=== PATIENT | female | born 1980 | race Caucasian/White ===

== ENCOUNTER 2021-03-27 11:16 | Inpatient (IN) | payer MEDICAID, SELFPAY ==
[2021-03-27] VITALS (7 sets, daily range): BP systolic 110–134; BP diastolic 75–96; PULSE 71–93; RESP 18–20; TEMP 36.4–37.1; O2SAT 95–99
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
--- NOTE | 2021-03-27 11:57 | ECG_ITS ---
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 Measurements Intervals [place] Rate: 69 P: 58 SD: 159 QRS: 11 QRSD: 91 T: 46 QT: 389 QTc: 418 Interpretive Statements SINUS RHYTHM WITH SINUS ARRHYTHMIA INDETERMINATE AXIS LOW QRS VOLTAGE IN PRECORDIAL LEADS [QRS DEFLECTION < 1.0 mV IN CHEST LEADS] INCOMPLETE RIGHT BUNDLE BRANCH BLOCK [90+ ms QRS DURATION, TERMINAL R IN V1/V2, 40+ ms S IN I/aVL/V4/V5/V6] No previous ECG available for comparison Electronically Signed On 03-27-2021 19:38:14 CDT by Eagle Salinas M.D. [email or web address]
[2021-03-27] MEDS: haloperidol inj 5 mg/mL INJ 1 mL IM (12:09)
[2021-03-27] MEDS: LORazepam 2 mg/mL INJ 1 mL IM (12:09)
[2021-03-27 14:01] LABS: Basophils % 0.3 %; Eosinophils # 0.1 10^3/uL (0.0-0.8); Eosinophils % 0.7 %; Hematocrit 42.3 % (37.0-47.0); Hemoglobin 13.3 g/dL (11.5-15.3); Lymphocytes # 2.5 10^3/uL (0.8-4.8); Lymphocytes % 33.8 %; Mean Corpuscular HGB Conc 31.4 g/dL (30.0-36.0); Mean Corpuscular Hemoglobin 28.2 pg (28.0-34.0); Mean Corpuscular Volume 89.8 fl (81-99); Mean Platelet Volume 9.8 fL (7.4-10.4); Monocytes # 0.7 10^3/uL (0.2-0.9); Monocytes % 9.5 %; Neutrophils # 4.12 10^3/uL (1.8-7.7); Neutrophils % 55.6 %; Nucleated Red Blood Cells % 0 %; Platelet Count 415 10^3/cmm (130-400); Red Blood Count 4.71 10^6/uL (4.1-5.3); Red Cell Distribution Width 14.8 % (12.1-15.1); White Blood Count 7.4 10^3/uL (4.0-10.0)
--- NOTE | 2021-03-27 14:01 | PC.NURSE ---
PT DIFFICULT TO AROUSE WITH VERBAL STIMULATION AND PHYSICAL TOUCH, VERSED NOT GIVEN
[2021-03-27 14:48] LABS: Alanine Aminotransferase 36 U/L (0-33); Albumin Level 3.7 g/dL (3.5-5.2); Alkaline Phosphatase 70 IU/L (35-105); Anion Gap 11.6 (5-19); Aspartate Amino Transferase 41 U/L (0-32); Blood Urea Nitrogen 10 mg/dL (6-20); Calcium 9.5 mg/dL (8.5-10.5); Carbon Dioxide 29 mmol/L (22-29); Chloride 103 mmol/L (98-107); Globulin 3.6 g/dL (1.3-4.6); Glomerular Filtration Rate 245.2 mL/min (90-130); Glucose 82 mg/dL (65-115); Osmolality Calculated 288 mOsm/kg (285-295); Potassium 3.6 mmol/L (3.5-5.1); Sodium 140 mmol/L (136-145); Thyroid Stimulating Hormone 1.54 uIU/mL (0.27-4.20); Total Bilirubin 0.4 mg/dL (0.15-1.2); Total Protein 7.3 g/dL (6.6-8.7)
[2021-03-27 14:53] LABS: Acetaminophen < 5.0 ug/mL (10-30); Alcohol Level < 10 mg/dL (0-10); Salicylate < 0.3 mg/dL (3-10)
[2021-03-27] MEDS: fentaNYL 50 mcg/mL INJ 2mL 25 MCG IVP (15:05)
[2021-03-27 15:45] LABS: HCG, Serum Qual Negative (Negative)
[2021-03-27 17:27] LABS: Glucose Urine UA Norm (Normal); Ketones Urine Negative (Negative); Protein Urine 1+ (Negative); Urine Appearance SL Hazy (CLEAR); Urine Color Yellow (Yellow); pH Urine 5 (5-7)
[2021-03-27 17:28] LABS: Add Urine Microscopic? YES; Bilirubin Urine Neg (Negative); Blood Urine 3+ (Negative); Leukocyte Esterase Urine 2+ (Negative); Nitrate Urine Positive (Negative); Urobilinogen Urine Neg (Negative)
[2021-03-27 17:40] LABS: Add Urine Culture? Yes; Bacteria Urine 4+ /hpf; Squamous Epithelial Cell Urine 0-4 /hpf (0-5)
[2021-03-28 06:00] VITALS: BP 110/75; PULSE 87; RESP 18; TEMP 37.1; O2SAT 99
[2021-03-28 14:00] VITALS: BP 96/63; PULSE 97; RESP 18; TEMP 36.7; O2SAT 97
[2021-03-28] MEDS: sulfamethoxazole-trimeth DS 160-800 mg Tablet 1 TAB PO ×3 (14:33→19:48)
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
[2021-03-28] MEDS: acetaminophen 325 mg Tablet 650 MG PO (19:47)
[2021-03-28 22:00] VITALS: BP 90/62; PULSE 82; RESP 20; TEMP 36.6; O2SAT 98
[2021-03-29 06:00] VITALS: BP 112/77; PULSE 96; RESP 18; TEMP 38; O2SAT 98
[2021-03-29] MEDS: acetaminophen 325 mg Tablet 650 MG PO ×3 (06:06→20:03)
[2021-03-29 09:44] LABS: Amphetamines Screen Urine Negative (Negative); Barbiturates Screen Urine Negative (Negative); Benzodiazepines Screen Urine Positive (Negative); Cocaine Screen Urine Negative (Negative); Opiate Screen Urine Negative (Negative); PCP Screen Urine Negative (Negative); THC Screen Urine Positive (Negative)
[2021-03-29 14:00] VITALS: BP 98/64; PULSE 89; RESP 16; TEMP 37.4; O2SAT 97
--- NOTE | 2021-03-29 17:21 | P.PN_ITS ---
Subjective NPU Subjective: Interval history: I discussed the patient's progress with the treatment team. They have talked with the patient's mother who had taken out a 96-hour hold to keep her daughter in the hospital to get the treatment she needs. Her mother's been concerned that she has been staying in the nettles. The patient says that she has been in an irritable and depressed mood, rating her depression at 8/10 in severity. She says she is tired, though she slept really well. She denies suicidal and homicidal ideation. She denies auditory and visual hallucinations. She would like to start on an antidepressant, and said that Wellbutrin has been helpful in the past. She denies histories of seizures and bulimia, and did not have any issues on the Wellbutrin. I spoke with the patient about her substance use. She says she is on the waiting list for [facility]. She is hoping that she can go to their facility directly from here. She says that her mother is adamant about her not staying with her. But she has some things she needs to picker / packer from her mother's house. The patient says she has felt like she has a fever and has felt achy. Her temp was 99.4 a little while ago. I spoke with the hospitalist on-call and he will review her labs. Urine culture was positive for E. coli and was sensitive to Bactrim, so that should provide adequate coverage. Mental Status Exam MSE Comments: I met with the patient on the bench by the nurses station, and she was dressed in hospital scrubs and appropriately groomed. She was calm, cooperative, interactive, and made good eye contact. No psychomotor agitation or retardation. Speech is at a regular rate and rhythm, normal volume, good articulation, not pressured. Alert, oriented to person and situation. Attention and concentration were intact. Memory is intact. Mood is depressed and anxious. Affect is pleasant. Thought process is logical and goal-directed. Thought content: Denies auditory and visual hallucinations. No delusions or paranoia are noted. No current suicidal ideation, and no homicidal ideation. Insight and judgment appear to be fair. Impulse control is fair as well. Vitals/I&O/Wt Last Vital Signs Temp 99.4 F 03/29/21 14:00 Pulse 89 09/03/21 14:00 Resp 16 03/29/21 14:00 BP 98/64 03/29/21 14:00 Pulse Ox 97 03/29/21 14:00 Weight last 48 hrs Weight 44.452 kg Data NPU : 03/27/21 13:54 03/27/21 13:54 Micro: Microbiology 03/27/21 16:48 Urine Culture - Final Urine,Clean Catch Escherichia coli Microbiology 03/27/21 16:48 Urine,Clean Catch Urine Culture - Final Escherichia coli A&P Assessment and plan (1) Bipolar 1 disorder, mixed: Status: Acute (2) Alcohol use disorder, mild, abuse: Status: Acute (3) Methamphetamine use disorder, mild, abuse: Status: Acute (4) Acute psychosis: Status: Acute Additional A&P Information Shavon Ojeda is a 40 year old female with 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 RECOMMENDATION AND PLAN: 1. Add Wellbutrin XL 150 mg daily for depression. She is also on melatonin. Because delusions have been resolving, we will hold off from adding an antipsychotic. 2. Continue every 15 minute checks for safety. 3. Encourage individual, group and milieu therapies. 4. Encourage sober living treatment after discharge at the highest level of care to which he is willing to commit. 5. Give Bactrim DS twice daily for 7 days for UTI. She does have a low-grade temp, but the urine culture shows that the E. coli is sensitive to Bactrim. 6. We will obtain a UDS, since the ED was unable to obtain ONE. It is positive for benzos and marijuana. Involuntary Hold Information 96 Hour Hold: 96 Hour Involuntary Admission: Yes 96 Hour Hold Ending Date: 04/03/21 96 Hour Hold Ending Time: 12:15 Attestations NPU Medical Necessity Statement*: Psychiatric hospitalization is medically necessary to prevent access to lethal means, to reevaluate medication, and to coordinate a safe discharge. Likely length of stay is 3 to 5 days. Coding Level of Care Code Acute Field Representatives Director for [facility] Byrd Diagnoses Bipolar 1 disorder, mixed F31.60 Alcohol use disorder, mild, abuse F10.10 Methamphetamine use disorder, mild, abuse F15.10 Acute psychosis F23
[2021-03-29] MEDS: sulfamethoxazole-trimeth DS 160-800 mg Tablet 1 TAB PO ×2 (17:38→20:03)
[2021-03-29] MEDS: trazodone 50 mg Tablet PO (20:16)
[2021-03-29 22:00] VITALS: BP 97/59; PULSE 67; RESP 18; TEMP 37.4; O2SAT 96
[2021-03-30] MEDS: acetaminophen 325 mg Tablet 650 MG PO ×2 (05:13→14:13)
[2021-03-30 06:00] VITALS: BP 87/64; PULSE 67; RESP 17; TEMP 36.8; O2SAT 98
--- NOTE | 2021-03-30 12:32 | P.PN_ITS ---
Subjective NPU Subjective: Interval history: Patient ask about going home or to [facility]. I explained that we would not be able to find out about [facility] until Thursday. She says her mood is pretty good, and she slept better with the trazodone last night. She says she woke up at 5 AM anxious with her mind racing. She is not sure what happened. She thinks that having a good night sl eep might have been different than when she stays up all night. She denies medication side effects. She says she is feeling better physically, without any feverishness or achiness. She denies auditory and visual hallucinations. No suicidal or homicidal ideation. New We talked about her drug use. She says her brother does not let her do drugs at his house. So she usually goes on the road to find drugs. Sometimes she goes to [place]. When asked what that is like, she says, you think it is going to be a couple of hits of something, then you wake up and you have been in intermediate for 6 months. We talked about the importance of creating a good plan so that that does not happen again. Mental Status Exam MSE Comments: I met with the patient in the day area, and she was dressed in hospital scrubs and appropriately groomed. She was calm, cooperative, interactive, and made good eye contact. No psychomotor agitation or retardation. Speech is at a regular rate and rhythm, normal volume, good articulation, not pressured. Alert, oriented to person and situation. Attention and concentration were intact. Memory is intact. Mood is depressed and anxious. Affect is pleasant. Thought process is logical and goal-directed. Thought content: Denies auditory and visual hallucinations. No delusions or paranoia are noted. No current suicidal ideation, and no homicidal ideation. Insight and judgment appear to be fair. Impulse control is fair as well. Vitals/I&O/Wt Last Vital Signs Temp 98.3 F 03/30/21 06:00 Pulse 67 03/30/21 06:00 Resp 17 03/30/21 06:00 BP 87/64 03/30/21 06:00 Pulse Ox 98 03/30/21 06:00 Data NPU : 03/27/21 13:54 03/27/21 13:54 Micro: Microbiology 03/27/21 16:48 Urine Culture - Final Urine,Clean Catch Escherichia coli Microbiology 03/27/21 16:48 Urine,Clean Catch Urine Culture - Final Escherichia coli A&P Assessment and plan (1) Bipolar 1 disorder, mixed: Status: Acute (2) Alcohol use disorder, mild, abuse: Status: Acute (3) Acute psychosis: Status: Acute (4) Methamphetamine use disorder, mild, abuse: Status: Acute Additional A&P Information Shavon Ojeda is a 40 year old female with 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 RECOMMENDATION AND PLAN: 1. Add Wellbutrin XL 150 mg daily for depression. She is also on melatonin. Because delusions have been resolving, we will hold off from adding an antipsychotic. No side effects on medication so far. 2. Continue every 15 minute checks for safety. 3. Encourage individual, group and milieu therapies. 4. Encourage sober living treatment after discharge at the highest level of care to which he is willing to commit. 5. Give Bactrim DS twice daily for 7 days for UTI. She does have a low-grade temp, but the urine culture shows that the E. coli is sensitive to Bactrim. Symptoms are improving. 6. UDS was positive for benzos and marijuana. Involuntary Hold Information 2 96 Hour Hold: 96 Hour Involuntary Admission: Yes 96 Hour Hold Ending Date: 04/03/21 96 Hour Hold Ending Time: 12:15 Attestations NPU Medical Necessity Statement*: Psychiatric hospitalization is medically nece ssary to prevent access to lethal means, to reevaluate medication, and to coordinate a safe discharge. Likely length of stay is 3 to 5 days. Coding Level of Care Code Acute Supervisor Operations for [facility] Fwd Diagnoses Bipolar 1 disorder, mixed F31.60 Alcohol use disorder, mild, abuse F10.10 Acute psychosis F23 Methamphetamine use disorder, mild, abuse F15.10
[2021-03-30 14:00] VITALS: BP 107/71; PULSE 68; RESP 18; TEMP 36.5; O2SAT 99
[2021-03-30] MEDS: sulfamethoxazole-trimeth DS 160-800 mg Tablet 1 TAB PO (17:20)
[2021-03-30 19:55] VITALS: BP 129/74; PULSE 88; RESP 18; TEMP 36.2; O2SAT 74
[2021-03-30] MEDS: trazodone 50 mg Tablet PO (21:27)
--- NOTE | 2021-03-30 21:30 | PC.NURSE ---
pt requested sleep med, Trazodone 50mg given.
--- NOTE | 2021-03-31 00:15 | PC.NURSE ---
pt noted with increased anxiety, yelling out, coming up to the desk wrapped in her sheet. Additional Trazodone 50mg po and Vistaril 50mg po given
[2021-03-31] MEDS: hyDROXYzine 25 mg Capsule 50 MG PO ×2 (00:32→21:11)
[2021-03-31] MEDS: trazodone 50 mg Tablet PO ×2 (00:32→21:11)
--- NOTE | 2021-03-31 00:33 | PC.NURSE ---
pt noted with increasde anxiety. requesting additional sleep aide. Trazodone 50mg po and Vistaril 50mg po given.
[2021-03-31 06:00] VITALS: BP 129/74; PULSE 88; RESP 18; TEMP 36.8; O2SAT 91; BMI 20.5
[2021-03-31] MEDS: sulfamethoxazole-trimeth DS 160-800 mg Tablet 1 TAB PO ×2 (08:25→18:23)
[2021-03-31] MEDS: haloperidol 5 mg Tablet PO (08:40)
--- NOTE | 2021-03-31 08:42 | PC.NURSE ---
Patient began throwing her blankets into the foyer in Room 170. She was screaming and hitting the jacobson. Administered Haldol 5mg PO for increasing agitation. Nurse to monitor for medication effectiveness.
[2021-03-31 14:00] VITALS: BP 95/63; PULSE 86; RESP 15; TEMP 36.8; O2SAT 97
--- NOTE | 2021-03-31 16:56 | P.PN_ITS ---
Subjective NPU Subjective: Interval history: I met with the patient in her room with the door open. She was quite sleepy, as she had gotten a sedative medication. She was not much able to tell me what had caused her to scream last night. She says today she is mostly feeling tired. Staff said that something set her off yesterday evening, and she seemed terrified. She denies medication side effects today. I talked with her about adding Zyprexa at bedtime on a scheduled basis. She likes this idea. She is taking it and tolerated it well already. Mental Status Exam MSE Comments: I met with the patient in her room, and she was quite sleepy.. She had psychomotor retardation. Speech was slow and quiet. Alert, oriented to person and situation. Attention and concentration were limited. Memory is intact. Mood is depressed and anxious. Affect is more irritable. Thought process is concrete. Thought content: Denies auditory and visual hallucinations. No delusions or paranoia are noted. No current suicidal ideation, and no homicidal ideation. Insight and judgment appear to be limited. Impulse control is limited as well. 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 RECOMMENDATION AND PLAN: 1. Add Zyprexa 5 mg at bedtime for psychosis and mood stabilization 2. Added Wellbutrin XL 150 mg daily for depression. She is also on melatonin. Because delusions have been resolving, we will hold off from adding an antipsychotic. No side effects on medication so far. 3. Continue every 15 minute checks for safety. 4. Encourage individual, group and milieu therapies. 5. Encourage sober living treatment after discharge at the highest level of care to which he is willing to commit. 6. Give Bactrim DS twice daily for 7 days for UTI. She does have a low-grade temp, but the urine culture shows that the E. coli is sensitive to Bactrim. Sy mptoms are improving. 7. UDS was positive for benzos and marijuana. Involuntary Hold Information 96 Hour Hold: 96 Hour Involuntary Admission: Yes 96 Hour Hold Ending Date: 04/03/21 96 Hour Hold Ending Time: 12:15 Attestations NPU Medical Necessity Statement*: Psychiatric hospitalization is medically necessary to prevent access to lethal means, to reevaluate medication, and to coordinate a safe discharge. Likely length of stay is 2 to 4 days. Coding Level of Care Code Acute Order Make Up Clerk for Everardo Byrd Diagnoses Bipolar 1 disorder, mixed F31.60 Alcohol use disorder, mild, abuse F10.10 Methamphetamine use disorder, mild, abuse F15.10 Acute psychosis F23
[2021-03-31] MEDS: OLANZapine 5 mg TABLET PO (21:11)
[2021-03-31 21:25] VITALS: BP 88/54; PULSE 73; RESP 17; TEMP 36.6; O2SAT 95
[2021-04-01 06:00] VITALS: BP 99/61; PULSE 90; RESP 15; TEMP 36.6; O2SAT 95
[2021-04-01] MEDS: sulfamethoxazole-trimeth DS 160-800 mg Tablet 1 TAB PO ×2 (07:42→17:12)
[2021-04-01 13:51] VITALS: BP 94/50; PULSE 68; RESP 16; TEMP 36.9; O2SAT 98
[2021-04-01] MEDS: hyDROXYzine 25 mg Capsule 50 MG PO (14:50)
--- NOTE | 2021-04-01 17:53 | P.PN_ITS ---
Subjective NPU Subjective: Interval history: The patient says she barely remembers talking yesterday. She was groggy from her medications, probably the Zyprexa last evening. She says she is irritable today and does not know why. She says this happens quite a bit. She says her energy is about half the usual level, but she is motivated to do things. She says her future is bright. She denies suicidal and homicidal ideation. She denies auditory and visual hallucinations. She is now planning on staying at her mother's house until she can go to [facility] rehab program. Mental Status Exam MSE Comments: I met with the patient on the bench by the nurses station. She is more alert today. She is calm, cooperative, and makes fairly good eye contact. She had no psychomotor agitation or retardation. Speech at a regular rate and rhythm and normal volume.. Alert, oriented to person and situation. Attention and concentration were improved. Memory is intact. Mood is irritable. Affect is irritable. Thought process is concrete. Thought content: Denies auditory and visual hallucinations. No delusions or paranoia are noted. No current suicidal ideation, and no homicidal ideation. Insight and judgment appear to be improved. Impulse control is improved as well. 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 RECOMMENDATION AND PLAN: 1. Added Zyprexa 5 mg at bedtime for psychosis and mood stabilization 2. Added Wellbutrin XL 150 mg daily for depression. She is also on melatonin. Because delusions have been resolving, we will hold off from adding an antipsychotic. No side effects on medication so far. 3. Continue every 15 minute checks for safety. 4. Encourage individual, group and milieu therapies. 5. Encourage sober living treatment after discharge at the highest level of care to which he is willing to commit. 6. Give Bactrim DS twice daily for 7 days for UTI. She does have a low-grade temp, but the urine culture shows that the E. coli is sensitive to Bactrim. Symptoms are improving. 7. UDS was positive for benzos and marijuana. Involuntary Hold Information 96 Hour Hold: 96 Hour Involuntary Admission: Yes 96 Hour Hold Ending Date: 04/03/21 96 Hour Hold Ending Time: 12:15 Attestations NPU Medical Necessity Statement*: Psychiatric hospitalization is medically necessary to prevent access to lethal means, to reevaluate medication, and to coordinate a safe discharge. Likely length of stay is 1 to 3 days. Coding Level of Care Code Acute Thread Milling Machine Set Up Operator for Everardo Fwd Diagnoses Bipolar 1 disorder, mixed F31.60 Alcohol use disorder, mild, abuse F10.10 Methamphetamine use disorder, mild, abuse F15.10 Acute psychosis F23
[2021-04-01] MEDS: nicotine 2 mg Gum BUCCAL (18:59)
[2021-04-01 20:16] VITALS: BP 103/68; PULSE 73; RESP 14; TEMP 36.6; O2SAT 98
[2021-04-01] MEDS: acetaminophen 325 mg Tablet 650 MG PO (21:59)
[2021-04-01] MEDS: OLANZapine 5 mg TABLET PO (21:59)
[2021-04-01] MEDS: trazodone 50 mg Tablet PO (21:59)
[2021-04-02] MEDS: acetaminophen 325 mg Tablet 650 MG PO (05:48)
[2021-04-02 06:00] VITALS: BP 116/72; PULSE 63; RESP 18; TEMP 36.6; O2SAT 97
[2021-04-02] MEDS: sulfamethoxazole-trimeth DS 160-800 mg Tablet 1 TAB PO (09:13)
[2021-04-02] MEDS: nicotine 2 mg Gum BUCCAL (09:13)
[2021-04-02] MEDS: hyDROXYzine 25 mg Capsule 50 MG PO (09:48)
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
[2021-04-02 13:57] VITALS: BP 116/72; PULSE 63; RESP 18; TEMP 36.6; O2SAT 97
[2021-04-02 14:02] VITALS: BP 116/72; PULSE 63; RESP 18; TEMP 36.6; O2SAT 97
== END 2021-04-02 14:02 | disposition home or self-care (01) | DRG 885 ==
LOC: ER 11:32 → NP 16:22
PROVIDERS: Admitting Provider Psychiatry & Neurology Child & Adolescent Psychiatry; Emergency Provider Emergency Medicine; PCP Family Medicine; Visit Provider Psychiatry & Neurology Child & Adolescent Psychiatry
DX: F23 Brief psychotic disorder (principal); F10.159 Alcohol abuse with alcohol-induced psychotic disorder, unspecified; F10.14 Alcohol abuse with alcohol-induced mood disorder; N39.0 Urinary tract infection, site not specified; F15.159 Other stimulant abuse with stimulant-induced psychotic disorder, unspecified; F15.14 Other stimulant abuse with stimulant-induced mood disorder; F31.60 Bipolar disorder, current episode mixed, unspecified; F32.9 Major depressive disorder, single episode, unspecified; F17.210 Nicotine dependence, cigarettes, uncomplicated; S01.81XA Laceration without foreign body of other part of head, initial encounter; W22.09XA Striking against other stationary object, initial encounter; B96.20 Unspecified Escherichia coli [E. coli] as the cause of diseases classified elsewhere; G71.00 Muscular dystrophy, unspecified; Z91.5 Personal history of self-harm; Z63.8 Other specified problems related to primary support group
CPT/HCPCS: 12013; 80053; 80306; 80307; 81001; 84443; 84703; 85025; 87077; 87086; 87186; 93005; 96372; 96374; 99285; J1630; J2060; J3010

== ENCOUNTER 2021-05-17 14:07 | Outpatient (CLI) | payer MEDICAID, SELFPAY ==
--- NOTE | 2021-05-17 14:16 | XR_ITS ---
WS: [id number] Lumbar spine, 3 views, 05/17/2021 Clinical Data: back and radicular pain Comparison: Lumbar spine, 10/27/2018. Findings: There is a levoscoliosis of the lumbar spine with a dextroscoliosis of the thoracic spine. There are bilateral pedicle screws and connecting rods, unchanged, extending from L4 superiorly into the thorac ic spine. The large calcifications to the right of the lumbar spine are unchanged. The calcifications may be renal and and gallbladder. There is a possible renal calcification to the left of the L2 vert ebral body measuring 0.8 cm.There is osteoarthritic change at the L3-4 level with disc narrowing and a right bony fusion. The SI joints show no changes. No compression fractures are noted. XR/XR lumbar spine 2-3V* [id number] Impression: 1. Extensive thoracolumbar scoliosis reduced with pedicle screws and rods uncha nged. 2. Cholelithiasis and right renal calcifications unchanged. 3. Left renal calcification. 4. 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
== END 2021-05-17 14:08 | disposition home or self-care (01) ==
LOC: RAD 14:11
PROVIDERS: PCP Family Medicine; Visit Provider Family Medicine Adult Medicine
DX: M54.16 Radiculopathy, lumbar region (principal); M41.85 Other forms of scoliosis, thoracolumbar region; N20.0 Calculus of kidney; M47.816 Spondylosis without myelopathy or radiculopathy, lumbar region
CPT/HCPCS: 72100; 81025

== ENCOUNTER 2021-11-01 14:58 | Inpatient (IN) | payer MEDICAID, SELFPAY ==
[2021-11-01 15:11] VITALS: BP 137/96; PULSE 129; RESP 18; TEMP 36.7; O2SAT 98; BMI 25.2
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
--- NOTE | 2021-11-01 16:01 | PC.PHAR ---
pt states she is not taking any rx or otc medications-pt has rx on hold for mobic 7.5mg daily at [facility] from apr 2021 and at [facility] with 4 refills from 05/2021 pt states not taking
[2021-11-01 16:02] VITALS: BP 137/96; PULSE 129; RESP 18; TEMP 36.7; O2SAT 98
[2021-11-01 16:09] LABS: HCG Qualitative Urine. Negative (Negative)
[2021-11-01] MEDS: sodium chloride 0.9% 1,000 ML 999 ML IV (16:24)
[2021-11-01 16:28] LABS: Amphetamines Screen Urine Negative (Negative); Barbiturates Screen Urine Negative (Negative); Benzodiazepines Screen Urine Negative (Negative); Cocaine Screen Urine Negative (Negative); Opiate Screen Urine Negative (Negative); PCP Screen Urine Negative (Negative); THC Screen Urine Positive (Negative)
[2021-11-01 16:49] LABS: Basophils % 0.3 %; Eosinophils # 0.1 10^3/uL (0.0-0.8); Eosinophils % 0.9 %; Hematocrit 42.7 % (37.0-47.0); Hemoglobin 13.6 g/dL (11.5-15.3); Lymphocytes % 27.1 %; Mean Corpuscular HGB Conc 31.9 g/dL (30.0-36.0); Mean Corpuscular Hemoglobin 27.4 pg (28.0-34.0); Mean Corpuscular Volume 85.9 fl (81-99); Mean Platelet Volume 11.2 fL (7.4-10.4); Monocytes # 0.6 10^3/uL (0.2-0.9); Neutrophils # 4.77 10^3/uL (1.8-7.7); Neutrophils % 63.6 %; Nucleated Red Blood Cells % 0 %; Platelet Count 345 10^3/cmm (130-400); Red Blood Count 4.97 10^6/uL (4.1-5.3); White Blood Count 7.5 10^3/uL (4.0-10.0)
[2021-11-01 17:48] LABS: Alanine Aminotransferase 30 U/L (0-33); Albumin Level 3.6 g/dL (3.5-5.2); Alkaline Phosphatase 73 IU/L (35-105); Anion Gap 11.8 (5-19); Aspartate Amino Transferase 35 U/L (0-32); Blood Urea Nitrogen 12 mg/dL (6-20); Carbon Dioxide 25 mmol/L (22-29); Chloride 106 mmol/L (98-107); Globulin 3.6 g/dL (1.3-4.6); Glucose 96 mg/dL (65-115); Osmolality Calculated 288 mOsm/kg (285-295); Potassium 3.8 mmol/L (3.5-5.1); Sodium 139 mmol/L (136-145); Thyroid Stimulating Hormone 1.18 uIU/mL (0.27-4.20); Total Bilirubin 0.3 mg/dL (0.15-1.2); Total Protein 7.2 g/dL (6.6-8.7)
[2021-11-01 17:49] LABS: Acetaminophen < 5.0 ug/mL (10-30); Alcohol Level < 10 mg/dL (0-10); Salicylate < 0.3 mg/dL (3-10)
--- NOTE | 2021-11-01 18:09 | CTR_ITS ---
PROCEDURE INFORMATION: Exam: CT Head Without Contrast Exam date and time: 11/01/2021 6:16 PM Age: 41 years old Clinical indication: Injury or trauma; Fall; Blunt trauma (contusions or hematomas); Additional info: Hit head, amnesia TECHNIQUE: Imaging protocol: Computed tomography of the head without contrast. Radiation optimization: All CT scans at this facility use at least one of these dose optimization techniques: automated exposure control; mA and/or kV adjustment per patient size (includes targeted exams where dose is matched to clinical indication); or iterative reconstruction. COMPARISON: No relevant prior studies available. RADIATION DOSE METRICS: Total DLP (mGy-cm): 686.47 FINDINGS: Brain: Normal. No hemorrhage. Unremarkable white matter. No mass effect. Cerebral ventricles: No ventriculomegaly. Paranasal sinuses: Visualized sinuses are unremarkable. No fluid levels. Mastoid air cells: Visualized mastoid air cells are well aerated. Bones/joints: Unremarkable. No acute fracture. Soft tissues: Unremarkable. CT/CT head wo con* [id number] IMPRESSION: No acute intracranial abnormality.
[2021-11-01] MEDS: haloperidol inj 5 mg/mL INJ 1 mL IM (18:45)
[2021-11-01] MEDS: LORazepam 2 mg/mL INJ 1 mL IM (18:45)
[2021-11-01 20:07] VITALS: BP 115/77; PULSE 81; RESP 18; O2SAT 96
[2021-11-02 05:48] VITALS: BP 101/69; PULSE 70; RESP 15; O2SAT 98
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
[2021-11-02 14:00] VITALS: BP 97/58; PULSE 85; RESP 16; TEMP 36.6; O2SAT 96
[2021-11-02] MEDS: gabapentin 300 mg Capsule PO (17:09)
[2021-11-02 19:41] VITALS: BP 104/74; PULSE 100; RESP 18; TEMP 36.7; O2SAT 96
[2021-11-03] MEDS: acetaminophen 325 mg Tablet 650 MG PO ×3 (05:35→17:23)
[2021-11-03 06:00] VITALS: BP 123/77; PULSE 81; RESP 16; TEMP 36.4; O2SAT 99
[2021-11-03] MEDS: escitalopram 10 mg Tablet PO (08:29)
[2021-11-03] MEDS: gabapentin 300 mg Capsule PO ×2 (08:29→20:54)
--- NOTE | 2021-11-03 08:33 | W.PM.NPUPNS ---
Subjective NPU Subjective: She still does not have a recollection of acting unusual after she left intermediate and went to the alf. She says that she fell back and hit her head and that they were concerned about her. She she said that she does have a history of self-injurious behavior. She does not remember the dose of Neurontin that she was on previously but it did help the pain substantially. She thought that she only took it twice per day. She also does not remember the dose of Lexapro that she took previously. She agreed to gradually increase the Neurontin. Today will be the first dose of 300 mg twice a day. She said it used to make her a little sleepy but she has not noticed that significantly from these doses. Mental Status Exam MSE Comments: This is a 41-year-old appropriate weight female who appears approximately her stated age and is in no acute distress. She was up and walking after breakfast. She was pleasant and cooperative with the evaluation. She is dressed in hospital scrubs. Her hair is very short. psychomotor activity is normal Speech is at a regular rate and rhythm, normal volume, good articulation, not pressured. Alert, oriented X3 Attention and concentration somewhat decreased because of the sedation. Memory is intact Mood is okay. Affect is mildly dysphoric Thought process is logical and goal-directed. Thought content: Denies auditory and visual hallucinations. No delusions or paranoia are noted. No current suicidal ideation, and no homicidal ideation. Fund of knowledge is possibly below average it is difficult to assess Insight and judgment appear to be poor. Impulse control is poor. Cognition: Patient Appearance: Appropriate Level of Consciousness: Awake, Alert and Appropriate Patient Cognition Impaired: No Ability to Follow Directions: Fair Patient Orientation (long list): Person, Place, Time, Name, Month and Year Comprehension Ability: No Impairment Hallucination Type: None Delusion Description: Not Present Thought Process: Appropriate and Logical Affect: Affect Description: Appropriate Behavior: Patient Behavior: Appropriate and Cooperative Speech Pattern: Appropriate and Clear Vitals/I&O/Wt Last Vital Signs Temp 97.5 F L 11/03/21 06:00 Pulse 81 11/03/21 06:00 Resp 16 11/03/21 06:00 BP 123/77 11/03/21 06:00 Pulse Ox 99 11/03/21 06:00 Weight last 48 hrs Weight 46.176 kg Weight 56.699 kg Data NPU : 11/01/21 16:28 11/01/21 17:05 A&P Assessment and plan (1) Acute psychosis: Status: Acute (2) Scoliosis deformity of spine: Status: Acute (3) Methamphetamine abuse: Status: Acute Plan This is a 41-year-old female who has a history of erratic behavior and substance abuse. She comes in now because of bizarre behavior since being released from intermediate 4 days ago. Urinalysis was only positive for marijuana. It seems fortunate that she has done irreparable damage to her brain Bilo for polysubstance abuse. She wants to start on Lexapro and Neurontin. Plan: 1. Start Lexapro 10 mg and Neurontin 300 mg twice daily 2. Continue every 15 minute checks for safety. 3. Encourage individual, group and milieu therapies. 4. Encourage sober living treatment after discharge at the highest level of care to which she is willing to commit. 5. We will monitor for safety for herself in the community prior to discharge. Involuntary Hold Information 96 Hour Hold: 96 Hour Involuntary Admission: Yes 96 Hour Hold Ending Date: 11/07/21 96 Hour Hold Ending Time: 18:45 Attestations NPU Medical Necessity Statement*: Inpatient hospitalization is medically necessary and the clinically appropriate intervention at this time. We will initiate medications and make changes as indicated. Coding Level of Care Code Acute Operating Room Aide for Everardo Byrd Diagnoses Acute psychosis F23 Scoliosis deformity of spine M41.9 Methamphetamine abuse F15.10
[2021-11-03] MEDS: OLANZapine 5 mg ODT PO (11:05)
--- NOTE | 2021-11-03 11:06 | PC.NURSE ---
PRN ZYPREXA ZYDIS 5 MG GIVEN PO PER PT REQUEST OF SOMETHING FOR SLEEP
[2021-11-03 14:00] VITALS: BP 101/61; PULSE 70; RESP 16; TEMP 36.4; O2SAT 98
[2021-11-03 20:27] VITALS: BP 112/67; PULSE 85; RESP 18; TEMP 36.5; O2SAT 95
[2021-11-04 06:00] VITALS: BP 124/83; PULSE 61; RESP 18; TEMP 36.9; O2SAT 97
[2021-11-04] MEDS: acetaminophen 325 mg Tablet 650 MG PO ×2 (08:32→13:48)
[2021-11-04] MEDS: gabapentin 300 mg Capsule PO ×3 (08:32→21:13)
[2021-11-04] MEDS: escitalopram 10 mg Tablet PO ×2 (08:32→21:13)
[2021-11-04] MEDS: hyDROXYzine 25 mg Capsule 50 MG PO (10:24)
--- NOTE | 2021-11-04 10:25 | PC.NURSE ---
PRN VISTARIL PT UP TO NURSE'S STATION VOICING SHE WANTED THE MEDICINE SHE CAN HAVE. WHEN FLUID DESIGNER ASKED PT WHICH MEDICATION SHE WAS REFERRING TO, PT STATED SOMETHING FOR ANXIETY. WHEN ASKED, PT REPORTS HER ANXIETY 8 ON A 0-10 SCALE AND RELATES THIS TO BEING IN NPU. PT IS NOT DISPLAYING ANY OUTWARD S/S OF ANXIETY AT THIS TIME. VISTARIL 50 MG GIVEN PO PER PT REQUEST FOR ANXIETY MEDICATION. WILL CONTINUE TO MONITOR FOR MEDICATION EFFECTIVENESS.
--- NOTE | 2021-11-04 12:15 | P.NPUPN_ITS ---
Subjective NPU Subjective: She says that she is doing well. She said the Lexapro makes her feel a little woozy and would like to change it to bedtime. She has not had any side effects from the Neurontin and would like to increase that to 3 times a day. She said that her mind is thinking much more clearly. She feels like she is ready to go home. She agreed to wait until tomorrow if she has a good day today. She also wants to take Vistaril at home because it helps her anxiety. Mental Status Exam MSE Comments: This is a 41-year-old appropriate weight female who appears approximately her stated age and is in no acute distress. She was up and walking after breakfast. She was pleasant and cooperative with the evaluation. She is dressed in hospital scrubs. Her hair is very short. psychomotor activity is normal Speech is at a regular rate and rhythm, normal volume, good articulation, not pressured. Alert, oriented X3 Attention and concentration somewhat decreased because of the sedation. Memory is intact Mood is good. Affect is very mildly dysphoric Thought process is logical and goal-directed. Thought content: Denies auditory and visual hallucinations. No delusions or paranoia are noted. No current suicidal ideation, and no homicidal ideation. Fund of knowledge is possibly below average it is difficult to assess Insight and judgment appear to be poor. Impulse control is poor. Cognition: Patient Appearance: Appropriate Level of Consciousness: Awake, Alert and Appropriate Patient Cognition Impaired: No Ability to Follow Directions: Fair Patient Orientation (long list): Person, Place, Time, Name, Month and Year Comprehension Ability: No Impairment Hallucination Type: None Delusion Description: Not Present Thought Process: Appropriate Affect: Affect Description: Calm Behavior: Patient Behavior: Cooperative Speech Pattern: Clear Vitals/I&O/Wt Last Vital Signs Temp 98.5 F 11/04/21 06:00 Pulse 61 11/04/21 06:00 Resp 18 11/04/21 06:00 BP 124/83 11/04/21 06:00 Pulse Ox 97 11/04/21 06:00 Weight last 48 hrs Weight 46.176 kg Data NPU : 11/01/21 16:28 11/01/21 17:05 A&P Assessment and plan (1) Acute psychosis: Status: Acute (2) Scoliosis deformity of spine: Status: Acute (3) Methamphetamine abuse: Status: Acute Plan This is a 41-year-old female who has a history of erratic behavior and substance abuse. She comes in now because of bizarre behavior since being released from group home 4 days ago. Urinalysis was only positive for marijuana. It seems fortunate that she has done irreparable damage to her brain Bilo for polysubstance abuse. She wants to start on Lexapro and Neurontin. Plan: 1. Change Lexapro 10 mg at bedtime and increase Neurontin to 300 mg 3 times a day. 2. Continue every 15 minute checks for safety. 3. Encourage individual, group and milieu therapies. 4. Encourage sober living treatment after discharge at the highest level of care to which she is willing to commit. 5. We will monitor for safety for herself in the community prior to discharge. Involuntary Hold Information 96 Hour Hold: 96 Hour Involuntary Admission: Yes 96 Hour Hold Ending Date: 11/07/21 96 Hour Hold Ending Time: 18:45 Attestations NPU Medical Necessity Statement*: Inpatient hospitalization is medically necessary and the clinically appropriate intervention at this time. We will initiate medications and make changes as indicated. Coding Level of Care Code Acute .Net Developer for Everardo Byrd Diagnoses Acute psychosis F23 Scoliosis deformity of spine M41.9 Methamphetamine abuse F15.10
[2021-11-04 14:00] VITALS: BP 124/83; PULSE 61; RESP 18; TEMP 36.9; O2SAT 97
--- NOTE | 2021-11-04 15:30 | PC.SOCIAL ---
Patient did not attend group.
[2021-11-04 19:37] VITALS: BP 113/77; PULSE 81; RESP 16; TEMP 36.7; O2SAT 97
[2021-11-05] MEDS: trazodone 50 mg Tablet PO ×2 (01:09→20:37)
[2021-11-05] MEDS: acetaminophen 325 mg Tablet 650 MG PO ×3 (05:58→18:35)
[2021-11-05 06:00] VITALS: BP 106/64; PULSE 64; RESP 16; TEMP 36.4; O2SAT 97
--- NOTE | 2021-11-05 06:02 | PC.NURSE ---
0110 Patient at nurses station asking for trazadone. She is having trouble sleeping. Trazadone 50mg po given. 0220 Patient is resting quietly. Medication effective.
--- NOTE | 2021-11-05 07:52 | P.NPUDS_ITS ---
Diagnoses at Discharge Discharge Diagnosis (1) Acute psychosis: Status: Acute (2) Scoliosis deformity of spine: Status: Acute Permanent problem details: Surgery with Linden rods implants in 1996 (3) Methamphetamine abuse: Status: Acute Reason for Visit Reason for Visit: psych issues Brief History: History of Present Illness Shavon Ojeda is a 41 year old female admitted through our emergency department.? The emergency doctors report is not yet available. She got out of long term just a few days ago and we have the following ERE report: Intervention:: ERE Coordinator contacted [facility] to inform them that caller would be bringing client in to talk with [facility] due to upsetting other residents. Caller expressed her concerns and stated that she would like client to talk with someone to see what options are available.? ? ERE Coordinator contacted [facility] and provided more information on what is happening with client. Caller informed ERE that she was bringing client to [facility], but had stopped at [facility] to get client a hair cut first. [facility] did reach out to caller and she stated that client cut all her hair off with a dull pair of scissors, she was not happy with what was cut off so, she went to the garage and looked for garden umberto to finish cutting her hair. Caller stated this was not a thought out process and she could have really hurt herself. She looks like she has mange. Caller reports that she was dancing around and then started banging her head on the floor very hard she did not draw blood. When caller checked on client that was in her room, she informed her of what she had done and said are you okay and what was going on. Client did not remember banging her head and said that must be why my neck hurts I thought I just slept wrong. Client has commented to caller I am just tired of all this and wouldn't care of something happened to me. She was admitted to the neuropsychiatry unit for definitive treatment of her issues.? She is still somewhat sedated because of a B-52 injection that she received in the emergency department.? She says she really does not know what happened.? She went to [facility] out reach and as far as she knows everything was fine.? For some reason they sent her here.? She denies hearing voices.? She denies illicit substances.? Her urine drug screen was negative except for cannabis.? She says that she has been on psychotropic medications and they have helped in the past.? She has not been on anything for a number of years.? She says that Lexapro and Neurontin helped mellow her out.? The Neurontin also helps with her chronic pain.? She would like to take those again.? She says that her childhood was difficult because she was diagnosed with muscular dystrophy and scoliosis.? She said that she grew up in the hospital.? She said that her pa rents were supportive and nothing bad otherwise happened in her childhood.? She did not start using marijuana until her late teens.? When asked if she used other drugs she initially said I do not know?.? Then she admitted that she did use illegal drugs.? She was in custodial for drug charges in 2004.? She has been in long term multiple times.? She has had very erratic behavior. Hospital Course Hospital Course She slowly acclimated to the individual, group and milieu therapies provided. She was started on Lexapro 10 mg and gabapentin was gradually increased to 300 mg 3 times daily. She tolerated these doses and showed steady improvement during her stay. She did not have any unusual or bizarre Behavior on the unit. she was able to contract for safety outside hospital prior to discharge. During the hospitalization, patient had routine laboratory studies which were within normal limits except for few outliers. Additionally there was a general medical evaluation which was also within normal limits and revealed no new acute processes. Discharge Summary: At the time of discharge, lethality was denied and psychosis was resolving. Mood and anxiety were well managed. Patient endorsed a plan to follow-up with the aftercare recommendations of the treatment team. Patient was evaluated and deemed to be absent credible lethality, and had achieved the maximum benefit from an inpatient hospitalization, so was discharged. Involuntary Hold Information 96 Hour Hold: 96 Hour Involuntary Admission: Yes 96 Hour Hold Ending Date: 11/07/21 96 Hour Hold Ending Time: 18:45 Mental Status Exam MSE Comments: This is a 41-year-old appropriate weight female who appears approximately her stated age and is in no acute distress. She was up in the day room at 7:40 AM waiting on breakfast. She was pleasant and cooperative with the evaluation. She is dressed in hospital scrubs. Her hair is very short. psychomotor activity is normal Speech is at a regular rate and rhythm, normal volume, good articulation, not pressured. Alert, oriented X3 Attention and concentration somewhat decreased because of the sedation. Memory is intact Mood is good. Affect is euthymic. Thought process is logical and goal-directed. Thought content: Denies auditory and visual hallucinations. No delusions or paranoia are noted. No current suicidal ideation, and no homicidal ideation. Fund of knowledge is probably average. Insight and judgment appear to be poor. Impulse control is poor. Cognition: Patient Appearance: Appropriate Level of Consciousness: Awake, Alert and Appropriate Patient Cognition Impaired: No Ability to Follow Directions: Fair Patient Orientation (long list): Person, Place, Time, Name, Month and Year Comprehension Ability: No Impairment Hallucination Type: None Delusion Description: Not Present Thought Process: Appropriate Affect: Affect Description: Calm Behavior: Patient Behavior: Cooperative Speech Pattern: Clear Discharge Data Studies Completed and Pending: Completed Studies During Hospitalization Category Date Time Status CT head wo con* 7 [id number] Urgent Cat Scan 11/01/21 18:09 Completed Radiology Impressions Head CT 11/01/21 18:09 IMPRESSION: No acute intracranial abnormality. Laboratory Results WBC 7.5 10^3/uL (4.0- 10.0) 11/01/21 16: RBC 4.97 10^6/uL (4.1 -5.3) 11/01/21 16: Hgb 13.6 g/dL (11.5-1 5.3) 11/01/21 16:28 Hct 42.7 % (37.0-47.0 ) 11/01/21 16: MCV 85.9 fl (81-99) 11/01/21 16: MCH 27.4 pg (28.0-34. 0) L 11/01/21 16: MCHC 31.9 g/dL (30.0-3 6.0) 11/01/21 16: RDW 15.0 % (12.1-15.1 ) 11/01/21 16: Plt Count 345 10^3/cmm (130 -400) 11/01/21 16: MPV 11.2 fL (7.4-10.4 ) H 11/01/21 16: Neut % (Auto) 63.6 % 11/01/21 16: Lymph % (Auto) 27.1 % 11/01/21 16:28 [place] % (Auto) 8.0 % 11/01/21 16: Eos % (Auto) 0.9 % 11/01/21 16: Baso % (Auto) 0.3 % 11/01/21 16: Neut # (Auto) 4.77 10^3/uL (1.8 -7.7) 11/01/21 16: Lymph # (Auto) 2.0 10^3/uL (0.8- 4.8) 11/01/21 16: [place] # (Auto) 0.6 10^3/uL (0.2- 0.9) 11/01/21: Eos # (Auto) 0.1 10^3/uL (0.0- 0.8) 11/01/21: Baso # (Auto) 0.0 10^3/uL (0.0- 0.1) 11/01/21 16: Nucleated RBC % (a uto) 0 % 11/01/21: Nucleated RBCs # 0.0 /100WBC 11/01/21 16:28 Sodium 139 mmol/L (136-1 45) 11/01/21 17:05 Potassium 3.8 mmol/L (3.5-5 .1) 11/01/21 17:05 Chloride 106 mmol/L (98-10 7) 11/01/21 17:05 Carbon Dioxide 25 mmol/L (22-29) 11/01/21 17:05 Anion Gap 11.8 (5-19) 11/01/21 17:05 BUN 12 mg/dL (6-20) 11/01/21 17:05 Creatinine 0.4 mg/dL (0.5-0. 9) L 11/01/21 17:05 GFR Calculation 175.0 mL/min (90- 130) H 11/01/21 17:05 Glucose 96 mg/dL (65-115) 11/01/21 17:05 Calculated Osmolal ity 288 mOsm/kg (285- 295) 11/01/21 17:05 Calcium 9.0 mg/dL (8.5-10 .5) 11/01/21 17:05 Total Bilirubin 0.3 mg/dL (0.15-1 .2) 11/01/21 17:05 AST 35 U/L (0-32) H 11/01/21 17:05 ALT 30 U/L (0-33) 11/01/21 17:05 Alkaline Phosphata se 73 IU/L (35-105) 11/01/21 17:05 Total Protein 7.2 g/dL (6.6-8.7 ) 11/01/21 17:05 Albumin 3.6 g/dL (3.5-5.2 ) 11/01/21 17:05 Globulin 3.6 g/dL (1.3-4.6 ) 11/01/21 17:05 TSH 1.18 uIU/mL (0.27 -4.20) 11/01/21 17:05 HCG, Qual Negative (Negati ve) 11/01/21 15:57 Salicylates < 0.3 mg/dL (3-10 ) L 11/01/21 17:05 Urine Opiates Scre en Negative ng/mL (N egative) 11/01/21 15:57 Acetaminophen < 5.0 ug/mL (10-3 0) L 11/01/21 17:05 Ur Barbiturates Sc reen Negative ng/mL (N egative) 11/01/21 15:57 Ur Phencyclidine S crn Negative ng/mL (N egative) 11/01/21 15:57 Ur Amphetamines Sc reen Negative ng/mL (N egative) 11/01/21 15:57 U Benzodiazepines Scrn Negative ng/mL (N egative) 11/01/21 15:57 Urine Cocaine Scre en Negative ng/mL (N egative) 11/01/21 15:57 U Marijuana (THC) Screen Positive ng/mL (N egative) H 11/01/21 15:57 Ethyl Alcohol < 10 mg/dL (0-10) 11/01/21 17:05 Vitals: Last Vital Signs Temp 97.6 F 11/05/21 06:00 Pulse 64 11/05/21 06:00 Resp 16 11/05/21 06:00 BP 106/64 11/05/21 06:00 Pulse Ox 97 11/05/21 06:00 Discharge Plan Discharge Patient Disposition: Home Condition: Stable Prescriptions: New trazodone 50 mg Tablet 50 mg PO BEDTIME PRN (Reason: Sleep) 30 Days Qty: 30 1RF gabapentin 300 mg Capsule 300 mg PO TID 30 Days Qty: 90 1RF escitalopram oxalate 10 mg Tablet 10 mg PO BEDTIME 30 Days Qty: 30 1RF No Action No Known Home Medications 0RF Discharge Orders: Discharge Order (Routine); Ordered 11/05/21 Ordered By: Erwin Leach Referrals: [facility] [Other] Lulu Wilson DO [Referring] - Discharge Diet: Regular Discharge Activity: Resume usual activity Patient Instructions: Opioid Safety Discharge Attestations NPU Time Spent in Discharge Care*: less than 30 min Specific Discharge Activities: Specific discharge activities: educating patient, discussing with manager of case management/social workers/dc planners, documenting/other paperwork and evaluating patient/reviewing data Status at Discharge: Cognitive status at discharge: cognitively intact , Behavioral status at discharge: cooperative and can be uncooperative , Coding Level of Care Code Acute [facility] DC note Diagnoses Acute psychosis F23 Scoliosis deformity of spine M41.9 Methamphetamine abuse F15.10
--- NOTE | 2021-11-05 08:41 | P.NPUPN_ITS ---
Subjective NPU Subjective: She says that she is doing well. She said the Lexapro makes her feel a little woozy and would like to change it to bedtime. She has not had any side effects from the Neurontin and would like to increase that to 3 times a day. She said that her mind is thinking much more clearly. She feels like she is ready to go home. She agreed to wait until tomorrow if she has a good day today. She also wants to take Vistaril at home because it helps her anxiety. Mental Status Exam MSE Comments: This is a 41-year-old appropriate weight female who appears approximately her stated age and is in no acute distress. She was up in the day room at 7:40 AM waiting on breakfast. She was pleasant and cooperative with the evaluation. She is dressed in hospital scrubs. Her hair is very short. psychomotor activity is normal Speech is at a regular rate and rhythm, normal volume, good articulation, not pressured. Alert, oriented X3 Attention and concentration somewhat decreased because of the sedation. Memory is intact Mood is good. Affect is euthymic. Thought process is logical and goal-directed. Thought content: Denies auditory and visual hallucinations. No delusions or paranoia are noted. No current suicidal ideation, and no homicidal ideation. Fund of knowledge is probably average. Insight and judgment appear to be poor. Impulse control is poor. Cognition: Patient Appearance: Appropriate Level of Consciousness: Awake, Alert and Appropriate Patient Cognition Impaired: No Ability to Follow Directions: Fair Patient Orientation (long list): Person, Place, Time, Name, Month and Year Comprehension Ability: No Impairment Hallucination Type: None Delusion Description: Not Present Thought Process: Appropriate Affect: Affect Description: Anxious Behavior: Patient Behavior: Appropriate and Cooperative Speech Pattern: Appropriate and Clear Vitals/I&O/Wt Last Vital Signs Temp 97.9 F 11/06/21 08:09 Pulse 86 11/06/21 08:09 Resp 17 11/06/21 08:09 BP 156/71 11/06/21 08:09 Pulse Ox 96 11/06/21 08:09 Data NPU : 11/01/21 16:28 11/01/21 17:05 A&P Assessment and plan (1) Acute psychosis: Status: Acute (2) Scoliosis deformity of spine: Status: Acute (3) Methamphetamine abuse: Status: Acute Plan This is a 41-year-old female who has a history of erratic behavior and substance abuse. She comes in now because of bizarre behavior since being released from [facility] days ago. Urinalysis was only positive for marijuana. It seems fortunate that she has done irreparable damage to her brain Bilo for polysubstance abuse. She wants to start on Lexapro and Neurontin. Plan: 1. Change Lexapro 10 mg at bedtime and increase Neurontin to 300 mg 3 times a day. 2. Continue every 15 minute checks for safety. 3. Encourage individual, group and milieu therapies. 4. Encourage sober living treatment after discharge at the highest level of care to which she is willing to commit. 5. We will monitor for safety for herself in the community prior to discharge. Involuntary Hold Information 96 Hour Hold: 96 Hour Involuntary Admission: Yes 96 Hour Hold Ending Date: 11/07/21 96 Hour Hold Ending Time: 18:45 Attestations NPU Medical Necessity Statement*: Inpatient hospitalization is medically necessary and the clinically appropriate intervention at this time. We will initiate medications and make changes as indicated. Coding Level of Care Code Acute [employer] for Everardo Byrd Diagnoses Acute psychosis F23 Scoliosis deformity of spine M41.9 Methamphetamine abuse F15.10
[2021-11-05] MEDS: gabapentin 300 mg Capsule PO ×3 (08:47→20:37)
[2021-11-05 13:48] VITALS: BP 106/64; PULSE 64; RESP 16; TEMP 36.4; O2SAT 97
[2021-11-05] MEDS: hyDROXYzine 25 mg Capsule 50 MG PO ×2 (13:49→22:06)
[2021-11-05] MEDS: ibuprofen 600 mg Tablet PO (15:31)
--- NOTE | 2021-11-05 16:17 | PC.NURSE ---
Pt has requested that she would like a script for tylenol when she discharges.
[2021-11-05 20:03] VITALS: BP 114/73; PULSE 78; RESP 17; TEMP 36.9; O2SAT 96
[2021-11-05] MEDS: escitalopram 10 mg Tablet PO (20:37)
[2021-11-06] MEDS: ondansetron 4 MG Tablet PO (05:47)
[2021-11-06 06:00] VITALS: BP 156/71; PULSE 86; RESP 17; TEMP 36.6; O2SAT 96
[2021-11-06] MEDS: acetaminophen 325 mg Tablet 650 MG PO (06:48)
[2021-11-06 08:06] VITALS: BP 156/71; PULSE 86; RESP 17; TEMP 36.6; O2SAT 96
[2021-11-06 08:09] VITALS: BP 156/71; PULSE 86; RESP 17; TEMP 36.6; O2SAT 96
== END 2021-11-06 11:17 | disposition home or self-care (01) | DRG 885 ==
LOC: ER 18:59 → NP 19:48
PROVIDERS: Admitting Provider Psychiatry & Neurology Psychiatry; Emergency Provider Emergency Medicine; Visit Provider Psychiatry & Neurology Psychiatry
DX: F23 Brief psychotic disorder (principal); M41.9 Scoliosis, unspecified; F15.10 Other stimulant abuse, uncomplicated; F17.200 Nicotine dependence, unspecified, uncomplicated; R45.6 Violent behavior; R45.88 Nonsuicidal self-harm; Z59.01 Sheltered homelessness
CPT/HCPCS: 36415; 70450; 80053; 80306; 80307; 81025; 84443; 85025; 96360; 96372; 97150; 97165; 99285; J1630; J2060; J7030; Q0162

== ENCOUNTER 2021-11-08 16:31 | Emergency (ER) | payer MEDICAID, SELFPAY ==
[2021-11-08 16:40] VITALS: BP 98/63; PULSE 102; RESP 16; TEMP 37.1; O2SAT 94; BMI 21.8
--- NOTE | 2021-11-08 17:10 | ED_ITS ---
HPI - Abdominal Pain General: Chief Complaint: Abdominal Pain Stated Complaint: N/V/D ABD Pains, fevor Time Seen by Provider: 11/08/21 16:56 History of Present Illness: 41-year-old female comes in today with complaints of abdominal pain, nausea vomiting diarrhea, and fever. Patient has a history of substance abuse disorder and chronic back pain. Patient does take escitalopram, gabapentin, and trazodone for her chronic medical conditions. Patient denies any abdominal surgeries except C-sections. Patient responds appropriately to questions and appears nontoxic. Patient does appear in mild to moderate pain. Associated Symptoms: Reports diarrhea, fever(s), nausea and vomiting Related Data: Date of Last Menstrual Period: 11/01/21 Review of Systems General: Reports: 10 or more systems reviewed and unremarkable except in HPI and below Const: Reports: fever(s) Card: Denies: chest pain Resp: Denies: dyspnea GI: Reports: abdominal pain, nausea, vomiting and diarrhea Musc: Reports: back pain Skin/Breast: Denies: rash PFSH ED PFSH: Medical History At risk for exposure to radiation Lumbar back pain with radiculopathy affecting right lower extremity Osteoarthritis of spine at multiple levels Psychiatric care Scoliosis deformity of spine Surgery with Paden rods implants in 1996 Social History Smoking and tobacco status: current every day smoker Alcohol intake: never Female Reproductive History: Date of last menstrual period: 11/01/21 Physical Exam Const: COMMON NORMALS: alert HENMT: COMMON NORMALS: normocephalic HEAD & SCALP: normocephalic MOUTH: Normal oral and palatal mucosa present Neck/C-Spine: COMMON NORMALS: full ROM Resp: COMMON NORMALS: normal respiratory effort and clear to auscultation bilaterally AUSCULTATION: clear to auscultation bilaterally Cardio: COMMON NORMALS: regular rate RATE: regular rate GI: COMMON NORMALS: Soft to palpation AUSCULTATION: Yes Hyperactive bowel sounds present PALPATION: Yes Soft to palpation and Yes Tenderness to palpation present (GI) (Generalized) Extremity: COMMON NORMALS: no pedal edema Neuro: SENSORIUM/ORIENTATION: Yes alert Skin: COMMON NORMALS: no rashes or lesions noted GENERAL SKIN EXAM: no rashes or lesions noted Course ED course: 1919, reviewed CT CAT scan with Dr. Graves. He feels patient if her pain is controlled could go home and try to pass the stone. Reviewed this with patient who reported improvement of pain and symptoms. Patient was agreeable to go home with medication for pain and nausea. Patient was given 1 dose of ceftriaxone due to increased white blood cell count and urine. No perinephric stranding was noted on CT to suggest pyelonephritis. Vital Signs: Vital signs: Vital Signs Temperature 98.2 F 11/08/21 17:29 Pulse Rate 85 11/08/21 17:44 Respiratory Rate 14 11/08/21 17:44 Blood Pressure 101/66 11/08/21 17:44 Pulse Oximetry 94 11/08/21 17:44 MDM - Abdominal Pain Medical Decision Making 41-year-old female comes in today with complaints of nausea vomiting and diarrhea for 3 days. Patient had reported a fever at times. On exam bowel sounds are hyperactive, abdomen is soft, generalized tenderness was noted. Vital signs were normal except for some elevation in pulse at 102. Differential diagnosis includes not limited to gastroenteritis, gallbladder disease, appendicitis. Laboratory values noted a white count 13,000, potassium of 3.2, creatinine was 1.2. The suggest patient has some mild dehydration. Patient was treated with 1 L of IV fluids and 20 mg potassium. Patient was treated with ketorolac and Zofran for pain. CT of the abdomen pelvis noted a large gallstone without any signs of obstruction or infection. Patient also has a staghorn c alculus in her right kidney. Patient also had a 12 mm stone in her left UPJ. I reviewed this with Dr. Graves who felt patient could follow-up with Dr. France on outpatient basis if patient's pain was being controlled. I reviewed this again with patient who agreed to plan. We will put case management report in for follow-up with Dr. France. Patient was instructed return to the ER for high fever or worsening symptoms. Patient reported understanding. Lab Data : 11/08/21 17:20 11/08/21 18:04 Labs/Radiology: Radiology Impressions Abdomen/Pelvis CT 11/08/21 17:21 IMPRESSION: 1. Large staghorn calculus on the right with severe dilation of the urinary calices containing dependent stones. There is also a 1.2 cm stone in the left UPJ with moderate dilation of the pelvicaliceal system. 2. Large 3 cm gallstone within the gallbladder body. Laboratory Results WBC 13.5 10^3/uL (4.0-10.0) H 11/08/21 17:20 Corrected WBC Cancelled 11/08/21 17:19 RBC 4.32 10^6/uL (4.1-5.3) 11/08/21 17:20 Hgb 11.7 g/dL (11.5-15.3) 11/08/21 17:20 Hct 35.3 % (37.0-47.0) L 11/08/21 17:20 MCV 81.7 fl (81-99) 11/08/21 17:20 MCH 27.1 pg (28.0-34.0) L 11/08/21 17:20 MCHC 33.1 g/dL (30.0-36.0) 11/08/21 17:20 RDW 14.5 % (12.1-15.1) 11/08/21 17:20 Plt Count 95 10^3/cmm (130-400) L 11/08/21 17:20 MPV 11.5 fL (7.4-10.4) H 11/08/21 17:20 Gran % Cancelled 11/08/21 17:19 Neut % (Auto) Cancelled 11/08/21 17:19 Lymph % (Auto) Not Reportable 11/08/21 17:20 [place] % (Auto) Not Reportable 11/08/21 17:20 Eos % (Auto) Cancelled 11/08/21 17:19 Baso % (Auto) Cancelled 11/08/21 17:19 Neut # (Auto) Cancelled 11/08/21 17:19 Lymph # (Auto) Not Reportable 11/08/21 17:20 [place] # (Auto) Not Reportable 11/08/21 17:20 Eos # (Auto) Cancelled 11/08/21 17:19 Baso # (Auto) Cancelled 11/08/21 17:19 Absolute Gran (auto) Cancelled 11/08/21 17:19 Nucleated RBC % (auto) Cancelled 11/08/21 17:19 Total Counted 100 (0-100) 11/08/21 17:20 Atypical Lymphs % 1.0 % (0-5) 11/08/21 17:20 Absolute Neutrophils 11.3 10^3/cmm (1.4-6.5) H 11/08/21 17:20 Segmented Neutrophils 55 % 11/08/21 17:20 Abs Segm Neuts (Man) 7.4 10/cmm (1.6-7.1) H 11/08/21 17:20 Band Neutrophils 29.0 % 11/08/21 17:20 Abs Band Neuts (Man) 3.9 10^3/cmm (0.0-1.2) H 11/08/21 17:20 Absolute Lymphocytes 1.5 10^3/cmm (1.2-3.4) 11/08/21 17:20 Lymphocytes (Manual) 10 % 11/08/21 17:20 Monocytes (Manual) 4.0 % 11/08/21 17:20 Absolute Monocytes 0.5 10^3/cmm (0.1-0.6) 11/08/21 17:20 Eosinophils (Manual) 0 % 11/08/21 17:20 Absolute Eosinophils 0.0 10^3/cmm (0.0-0.7) 11/08/21 17:20 Basophils (Manual) 0.0 % 11/08/21 17:20 Absolute Basophils 0.0 10^3/cmm (0.0-0.2) 11/08/21 17:20 Metamyelocytes 1.0 % 11/08/21 17:20 Nucleated RBCs # Cancelled 11/08/21 17:19 Platelet Estimate Decreased (Normal) L 11/08/21 17:20 Sodium 134 mmol/L (136-145) L 11/08/21 18:04 Potassium 3.2 mmol/L (3.5-5.1) L 11/08/21 18:04 Chloride 101 mmol/L (98-107) 11/08/21 18:04 Carbon Dioxide 20 mmol/L (22-29) L 11/08/21 18:04 Anion Gap 16.2 (5-19) 11/08/21 18:04 BUN 32 mg/dL (6-20) H 11/08/21 18:04 Creatinine 1.2 mg/dL (0.5-0.9) H 11/08/21 18:04 GFR Calculation 49.3 mL/min (90-130) L 11/08/21 18:04 Glucose 90 mg/dL (65-115) 11/08/21 18:04 Calculated Osmolality 284 mOsm/kg (285-295) L 11/08/21 18:04 Calcium 7.7 mg/dL (8.5-10.5) L 11/08/21 18:04 Total Bilirubin 0.6 mg/dL (0.15-1.2) 11/08/21 18:04 AST 29 U/L (0-32) 11/08/21 18:04 ALT 28 U/L (0-33) 11/08/21 18:04 Alkaline Phosphatase 75 IU/L (35-105) 11/08/21 18:04 Total Protein 6.3 g/dL (6.6-8.7) L 11/08/21 18:04 Albumin 2.4 g/dL (3.5-5.2) L 11/08/21 18: Globulin 3.9 g/dL (1.3-4.6) 11/08/21 18:04 Lipase 10 U/L (13-60) L 11/08/21 18:04 Urine Color Yellow (Yellow) 11/08/21 18:25 Urine Appearance Sl hazy (CLEAR) 11/08/21 18:25 Urine pH 7 (5-7) 11/08/21 18:25 Ur Specific [place] 1.005 (1.005-1.030) 11/08/21 18:25 Urine Protein 1+ (Negative) H 11/08/21 18:25 Urine Glucose (UA) Norm (Normal) 11/08/21 18:25 Urine Ketones Negative (Negative) 11/08/21 18:25 Urine Blood 2+ (Negative) H 11/08/21 18:25 Urine Nitrate Negative (Negative) 11/08/21 18:25 Urine Bilirubin Neg (Negative) 11/08/21 18:25 Urine Urobilinogen Norm mg/dL (Negative) 11/08/21 18:25 Ur Leukocyte Esterase 2+ (Negative) H 11/08/21 18:25 Urine RBC 10-15 /hpf (0-2) H 11/08/21 18:25 Urine WBC 25-40 /hpf (0-5) H 11/08/21 18:25 Ur Squamous Epith Cells 15-25 /hpf (0-5) H 11/08/21 18:25 Amorphous Sediment Not Reportable 11/08/21 18:25 Urine Bacteria 4+ /hpf (NONE) H 11/08/21 18:25 Discharge Plan Discharge Patient Disposition: Home Clinical Impression: Ureteral calculus, left, Dehydration Condition: Stable Prescriptions: New ondansetron 4 mg tablet,disintegrating 4 mg PO Q8H PRN (Reason: nausea and vomiting) Qty: 10 0RF hydrocodone-acetaminophen 5-325 mg tablet 1 tab PO Q6H PRN (Reason: pain) Qty: 14 0RF No Action trazodone 50 mg Tablet 50 mg PO BEDTIME PRN (Reason: Sleep) 30 Days Qty: 30 1RF gabapentin 300 mg Capsule 300 mg PO TID 30 Days Qty: 90 1RF escitalopram oxalate 10 mg Tablet 10 mg PO BEDTIME 30 Days Qty: 30 1RF Discharge Orders: Discharge ED (Routine); Ordered 11/08/21 Ordered By: Brooks Luo Discharge Diet: Usual diet Discharge Activity: Increase activity as tolerated Patient Instructions: Kidney Stones (ED), How to Strain Your Urine (ED), Opioid Safety Activity Restrictions/Additional Instructions: Home and rest. Use medication for pain and nausea. Activity as tolerated. Follow-up with primary care as needed. Case management will contact you regarding follow-up with urologist for further evaluation and treatment of kidney stones. Return to ER for worsening symptoms such as uncontrolled pain or high fever, or new concerns. Coding Level of Care Code ED Setter Induction [employer] Equipment for Everardo Fwтатьяна Exam Comprehensive
--- NOTE | 2021-11-08 17:21 | CTR_ITS ---
PROCEDURE INFORMATION: Exam: CT Abdomen And Pelvis With Contrast Exam date and time: 11/08/2021 6:28 PM Age: 41 years old Clinical indication: Abdominal pain; Localized; Left; Prior surgery; Surgery date: 6+ months; Surgery type: C-sect x 2; Patient HX: C/O abd (ain w n/v/d HX of md and carballo rods; Additional info: Abd pain, n/v/d, fever, R/O abd infection TECHNIQUE: Imaging protocol: Computed tomography of the abdomen and pelvis with contrast. Radiation optimization: All CT scans at this facility use at least one of these dose optimization techniques: automated exposure control; mA and/or kV adjustment per patient size (includes targeted exams where dose is matched to clinical indication); or iterative reconstruction. Contrast material: OMNI 300; Contrast volume: 75 ml; Contrast route: INTRAVENOUS (IV); COMPARISON: CR XR lumbar spine 2-3V* [id number] 05/17/2021 2:21 PM RADIATION DOSE METRICS: Total DLP (mGy-cm): 696.16 FINDINGS: Liver: Normal. No mass. Gallbladder and bile ducts: Large 3 cm gallstone in the gallbladder body. No gallbladder distention/wall thickening. No ductal dilation. Pancreas: Normal. No ductal dilation. Spleen: Normal. No splenomegaly. Adrenal glands: Normal. No mass. Kidneys and ureters: Large staghorn calculus on the right with severe dilation of the urinary calices and dependent stones. There is also a 1.2 cm stone at the left UPJ with moderate pelvicaliceal dilation. Stomach and bowel: Unremarkable. No obstruction. No mucosal thickening. Appendix: No evidence of appendicitis. Intraperitoneal space: Unremarkable. No free air. No significant fluid collection. Arteries: Unremarkable. No abdominal aortic aneurysm. Lymph nodes: Unremarkable. No enlarged lymph nodes. Urinary bladder: Unremarkable as visualized. Reproductive: Unremarkable as visualized. Bones/joints: No acute fracture. Severe scoliotic change of the thoracolumbar spine with partially visualized Carballo rods. Soft tissues: Unremarkable. CT/CT abdomen pelvis w con* [id number] IMPRESSION: 1. Large staghorn calculus on the right with severe dilation of the urinary calices containing dependent stones. There is also a 1.2 cm stone in the left UPJ with moderate dilation of the pelvicaliceal system. 2. Large 3 cm gallstone within the gallbladder body.
[2021-11-08 17:29] VITALS: BP 101/66; PULSE 88; RESP 14; TEMP 36.8; O2SAT 94
[2021-11-08 17:37] LABS: Hematocrit 35.3 % (37.0-47.0); Hemoglobin 11.7 g/dL (11.5-15.3); Mean Corpuscular HGB Conc 33.1 g/dL (30.0-36.0); Mean Corpuscular Hemoglobin 27.1 pg (28.0-34.0); Mean Corpuscular Volume 81.7 fl (81-99); Mean Platelet Volume 11.5 fL (7.4-10.4); Platelet Count 95 10^3/cmm (130-400); Red Blood Count 4.32 10^6/uL (4.1-5.3); Red Cell Distribution Width 14.5 % (12.1-15.1); White Blood Count 13.5 10^3/uL (4.0-10.0)
[2021-11-08] MEDS: ketorolac 30 mg/mL INJ 15 MG IVP (17:39)
[2021-11-08] MEDS: sodium chloride 0.9% 1,000 ML 999 ML IV (17:39)
[2021-11-08] MEDS: ondansetron 2 mg/ML SDV 2 mL 4 MG IVP (17:40)
[2021-11-08 17:44] VITALS: BP 101/66; PULSE 85; RESP 14; O2SAT 94
[2021-11-08 17:58] LABS: Absolute Segmented Neutrophil 7.4 10/cmm (1.6-7.1); Band Neutrophils Absolute 3.9 10^3/cmm (0.0-1.2); Eosinophils 0 %; Lymphocytes 10 %; Monocytes Absolute 0.5 10^3/cmm (0.1-0.6); Segmented Neutrophils 55 %; Slide Review Slide Review Perform; Total Cells Counted 100 (0-100)
[2021-11-08 17:59] LABS: Absolute Neutrophil 11.3 10^3/cmm (1.4-6.5); Lymphocytes Absolute 1.5 10^3/cmm (1.2-3.4); Platelet Estimate Decreased (Normal)
[2021-11-08] MEDS: iohexol 300 mg/mL 100 mL Btl IV (18:28)
[2021-11-08 18:33] LABS: Alanine Aminotransferase 28 U/L (0-33); Albumin Level 2.4 g/dL (3.5-5.2); Alkaline Phosphatase 75 IU/L (35-105); Anion Gap 16.2 (5-19); Aspartate Amino Transferase 29 U/L (0-32); Blood Urea Nitrogen 32 mg/dL (6-20); Calcium 7.7 mg/dL (8.5-10.5); Carbon Dioxide 20 mmol/L (22-29); Chloride 101 mmol/L (98-107); Globulin 3.9 g/dL (1.3-4.6); Glomerular Filtration Rate 49.3 mL/min (90-130); Glucose 90 mg/dL (65-115); Lipase 10 U/L (13-60); Osmolality Calculated 284 mOsm/kg (285-295); Potassium 3.2 mmol/L (3.5-5.1); Sodium 134 mmol/L (136-145); Total Bilirubin 0.6 mg/dL (0.15-1.2); Total Protein 6.3 g/dL (6.6-8.7)
[2021-11-08 18:46] LABS: Add Urine Microscopic? YES; Bilirubin Urine Neg (Negative); Blood Urine 2+ (Negative); Glucose Urine UA Norm (Normal); Ketones Urine Negative (Negative); Leukocyte Esterase Urine 2+ (Negative); Nitrate Urine Negative (Negative); Protein Urine 1+ (Negative); Specific Gravity, Urine 1.005 (1.005-1.030); Urine Appearance SL Hazy (CLEAR); Urine Color Yellow (Yellow); Urobilinogen Urine Norm (Negative); pH Urine 7 (5-7)
[2021-11-08 18:47] LABS: Add Urine Culture? No; Bacteria Urine 4+ /hpf; Squamous Epithelial Cell Urine 15-25 /hpf (0-5); WBC Urine 25-40 /hpf (0-5)
[2021-11-08] MEDS: potassium chloride ER 20 mEq Tablet PO (19:33)
[2021-11-08] MEDS: HYDROcodone-acetaminophen 7.5-325 mg Tablet 1 TAB PO (19:33)
[2021-11-08] MEDS: cefTRIAXone 1,000 MG in sodium chloride 0.9% (plus) 50 ML 100 MG IV (19:34)
[2021-11-08 19:50] VITALS: BP 97/76; PULSE 79; RESP 15; TEMP 36.8; O2SAT 97
== END 2021-11-08 19:50 | disposition home or self-care (01) ==
PROVIDERS: Emergency Provider Nurse Practitioner Family
DX: E86.0 Dehydration (principal); N20.2 Calculus of kidney with calculus of ureter; K80.80 Other cholelithiasis without obstruction
CPT/HCPCS: 74177; 80053; 81001; 83690; 85007; 85025; 96365; 96375; 99284; J0696; J1885; J2405; J7030; Q9967

== ENCOUNTER → 2021-11-25 09:51 | Outpatient (BNVA) | payer MEDICAID, SELFPAY | PROVIDERS: Visit Provider Counselor Mental Health | DX: F33.2 Major depressive disorder, recurrent severe without psychotic features (principal); F31.60 Bipolar disorder, current episode mixed, unspecified | CPT/HCPCS: 90832 ==

== ENCOUNTER → 2021-11-28 08:33 | Outpatient (BNVA) | payer MEDICAID, SELFPAY | PROVIDERS: Visit Provider Nurse Practitioner Psychiatric/Mental Health | DX: F33.1 Major depressive disorder, recurrent, moderate (principal); F41.0 Panic disorder [episodic paroxysmal anxiety] | CPT/HCPCS: 90792 ==

== ENCOUNTER → 2021-12-09 08:46 | Outpatient (BNVA) | payer MEDICAID, SELFPAY | PROVIDERS: PCP Family Medicine Adult Medicine; Visit Provider Counselor Mental Health | DX: F33.2 Major depressive disorder, recurrent severe without psychotic features (principal); F31.60 Bipolar disorder, current episode mixed, unspecified | CPT/HCPCS: 90832 ==

== ENCOUNTER → 2021-12-12 10:58 | Outpatient (BNVA) | payer MEDICAID, SELFPAY | PROVIDERS: PCP Family Medicine Adult Medicine; Visit Provider Nurse Practitioner Psychiatric/Mental Health | DX: F41.0 Panic disorder [episodic paroxysmal anxiety] (principal); F33.1 Major depressive disorder, recurrent, moderate; F15.10 Other stimulant abuse, uncomplicated; F10.10 Alcohol abuse, uncomplicated; M54.16 Radiculopathy, lumbar region; M41.9 Scoliosis, unspecified | CPT/HCPCS: 99214 ==

== ENCOUNTER → 2022-01-16 12:58 | Outpatient (BNVA) | payer MEDICAID, SELFPAY | PROVIDERS: PCP Family Medicine Adult Medicine; Visit Provider Nurse Practitioner Psychiatric/Mental Health | DX: F33.1 Major depressive disorder, recurrent, moderate (principal); F41.0 Panic disorder [episodic paroxysmal anxiety]; F15.10 Other stimulant abuse, uncomplicated; M41.9 Scoliosis, unspecified; M54.16 Radiculopathy, lumbar region; Z03.89 Encounter for observation for other suspected diseases and conditions ruled out | CPT/HCPCS: 99214 ==

== ENCOUNTER 2022-02-10 09:52 | Outpatient (CLI) | payer OTHER, SELFPAY ==
--- NOTE | 2022-02-10 10:10 | XR_ITS ---
WS: [id number] XR hip RT 2-3V wo/w pel* [id number] REASON FOR EXAM: SCOLIOSIS/DDD/R HIP PAIN W/ROM DIFFICULTY FINDINGS: No fracture or dislocation. Hip joint space relatively well preserved with mild subchondral sclerosis and small marginal osteophy te of the acetabulum. Small marginal osteophyte of the femoral head. No definite findings of femoral acetabular impingement. The right hip appears unchanged compared to the right hip as imaged on previous lumbar spine study of 10/27/2018. XR/XR hip RT 2-3V wo/w pel* [id number] IMPRESSION: Mild changes of osteoarthritis unchanged.
== END 2022-02-10 09:53 | disposition home or self-care (01) ==
LOC: RAD 09:53
PROVIDERS: PCP Family Medicine Adult Medicine; Visit Provider Dermatology
DX: M16.11 Unilateral primary osteoarthritis, right hip (principal); M25.551 Pain in right hip
CPT/HCPCS: 73502

== ENCOUNTER 2022-03-07 02:28 | Emergency (ER) | payer MEDICAID, SELFPAY ==
[2022-03-07 02:29] VITALS: BMI 21.2
--- NOTE | 2022-03-07 02:29 | W.ED.PSYCHS ---
Documented by User: Robin Márquez MD 03/22/22 15:56 HPI - Psych General: Chief Complaint: Psychiatric Symptoms Stated Complaint: Depression eval Time Seen by Provider: 03/07/22 02:29 History of Present Illness: Ms. Ojeda is a 41-year-old lady with complex past psychiatric history complicated by substance abuse who presents to the emergency department due to worsening depression. She reports 1 week of worsening symptoms including increased sadness and hopelessness. She does have normal sleep but difficulty with appetite. She denies suicidal or homicidal ideation. She denies hallucinations. She reports compliance with her medication regimen but worsening symptoms despite this. Otherwise reports some aches and pains but no other new medical complaints. Intensity symptoms is moderate. Course has worsened. No other specific changes in health, exacerbating, or alleviating factors identified. Onset (ago): week(s) Duration: getting worse History of same: Yes Associated psychiatric symptoms: depression Treatments prior to arrival: none Review of Systems General: Reports: 10 or more systems reviewed and unremarkable except in HPI and below PFSH ED PFSH: Medical History Acute kidney injury Creatinine went from 0.4 to a creatinine of 1.2 on 11/08/2021. At risk for exposure to radiation Chronic nausea Gallstones without obstruction of gallbladder History of muscular dystrophy Lumbar back pain with radiculopathy affecting right lower extremity Major depressive disorder, recurrent, moderate The following information was retrieved and edited from Behavior Assessment Report, completed on 10/30/21: Methamphetamine abuse Osteoarthritis of spine at multiple levels Osteomyelitis of right hip Psychiatric care Psychiatric care Scoliosis deformity of spine Surgery with [place] rods implants in 1996 Social History Smoking and tobacco status: current every day smoker cigarettes Packs smoked per day: 0.25 Years cigarettes smoked: 20 Quit status (tobacco): considering quitting Second hand smoke exposure: Yes Alcohol intake: never Female Reproductive History: Date of last menstrual period: 11/01/21 Physical Exam Const: COMMON NORMALS: alert GENERAL APPEARANCE: cooperative and well developed HENMT: COMMON NORMALS: normocephalic and atraumatic HEAD & SCALP: normocephalic and atraumatic Eye: COMMON NORMALS: conjunctivae normal CONJUNCTIVA: Yes conjunctivae normal SCLERA: sclerae normal Neck/C-Spine: COMMON NORMALS: supple GENERAL: Yes trachea midline Resp: COMMON NORMALS: normal respiratory effort and clear to auscultation bilaterally EFFORT & INSPECTION: Yes able to speak in complete sentences AUSCULTATION: clear to auscultation bilaterally Cardio: COMMON NORMALS: regular rate and regular rhythm RATE: regular rate RHYTHM: regular rhythm GI: COMMON NORMALS: Soft to palpation PALPATION: Yes Soft to palpation and No Tenderness to palpation present (GI) Extremity: GENERAL: Yes normal exam except as noted and No edema Neuro: COMMON NORMALS: moves all extremities SENSORIUM/ORIENTATION: Yes alert and No Orientation impaired Psych: COMMON NORMALS: mental status grossly normal and Normal thought process present THOUGHT PROCESS: Normal thought process present Course Vital Signs: Vital signs: Vital Signs Temperature 98.1 F 03/07/22 02:33 Pulse Rate 65 03/07/22 06:35 Respiratory Rate 16 03/07/22 06:35 Blood Pressure 152/86 03/07/22 06:35 Pulse Oximetry 100 03/07/22 06:35 Oxygen Delivery Me thod 03/07/22 06:35 MDM - Psych Medical Decision Making 41-year-old lady with history of psychiatric disorder presenting for worsening depression. Based on ED evaluation at this point there is no obvious condition that would preclude the patient from inpatient management of psychiatric concerns. Patient is voluntary at this time. Discussed with psychiatry service and patient accepted to neuropsych unit. Patient presents here with depression she is not suicidal homicidal she states she feels much improved since being here she does not want to be admitted she was voluntary she has no reason to have 96-hour hold she was never suicidal she is stable for discharge. She does see [facility] [place] she is to follow-up with them and return if worsening. Medical Records I reviewed the patient's medical records. Lab Data I reviewed the patient's lab results. : 03/07/22 02:59 03/07/22 02:59 Laboratory Results WBC 12.3 10^3/uL (4.0-10.0) H 03/07/22 02:59 RBC 5.07 10^6/uL (4.1-5.3) 03/07/22 02:59 Hgb 12.8 g/dL (11.5-15.3) 03/07/22 02:59 Hct 42.0 % (37.0-47.0) 03/07/22 02:59 MCV 82.8 fl (81-99) 03/07/22 02:59 MCH 25.2 pg (28.0-34.0) L 03/07/22 02:59 MCHC 30.5 g/dL (30.0-36.0) 03/07/22 02:59 RDW 18.7 % (12.1-15.1) H 03/07/22 02:59 Plt Count 419 10^3/cmm (130-400) H 03/07/22 02:59 MPV 9.5 fL (7.4-10.4) 03/07/22 02:59 Neut % (Auto) 55.1 % 03/07/22 02:59 Lymph % (Auto) 37.1 % 03/07/22 02:59 [place] % (Auto) 7.0 % 03/07/22 02:59 Eos % (Auto) 0.4 % 03/07/22 02:59 Baso % (Auto) 0.2 % 03/07/22 02:59 Neut # (Auto) 6.78 10^3/uL (1.8-7.7) 03/07/22 02:59 Lymph # (Auto) 4.6 10^3/uL (0.8-4.8) 03/07/22 02:59 [place] # (Auto) 0.9 10^3/uL (0.2-0.9) 03/07/22 02:59 Eos # (Auto) 0.1 10^3/uL (0.0-0.8) 03/07/22 02:59 Baso # (Auto) 0.0 10^3/uL (0.0-0.1) 03/07/22 02:59 Nucleated RBC % (auto) 0 % 03/07/22 02:59 Nucleated RBCs # 0.0 /100WBC 03/07/22 02:59 Sodium 138 mmol/L (136-145) 03/07/22 02:59 Potassium 3.8 mmol/L (3.5-5.1) 03/07/22 02:59 Chloride 102 mmol/L (98-107) 03/07/22 02:59 Carbon Dioxide 23 mmol/L (22-29) 03/07/22 02:59 Anion Gap 16.8 (5-19) 03/07/22 02:59 BUN 13 mg/dL (6-20) 03/07/22 02:59 Creatinine 0.9 mg/dL (0.5-0.9) 08 02:59 GFR Calculation 68.7 mL/min (90-130) L 03/07/22 02:59 Glucose 95 mg/dL (65-115) 03/07/22 02:59 Calculated Osmolality 286 mOsm/kg (285-295) 03/07/22 02:59 Calcium 9.7 mg/dL (8.5-10.5) 03/07/22 02:59 Total Bilirubin 0.2 mg/dL (0.15-1.2) 03/07/22 02:59 AST 41 U/L (0-32) H 03/07/22 02:59 ALT 32 U/L (0-33) 03/07/22 02:59 Alkaline Phosphatase 89 IU/L (35-105) 03/07/22 02:59 Total Protein 8.3 g/dL (6.6-8.7) 03/07/22 02:59 Albumin 3.9 g/dL (3.5-5.2) 03/07/22 02:59 Globulin 4.4 g/dL (1.3-4.6) 03/07/22 02:59 TSH 3.55 uIU/mL (0.27-4.20) 03/07/22 02:59 HCG, Qual Negative (Negative) 03/07/22 03:29 Salicylates < 0.3 mg/dL (3-10) L 03/07/22 02:59 Urine Opiates Screen Negative ng/mL (Negative) 03/07/22 03:29 Acetaminophen < 5.0 ug/mL (10-30) L 03/07/22 02:59 Ur Barbiturates Screen Negative ng/mL (Negative) 03/07/22 03:29 Ur Phencyclidine Scrn Negative ng/mL (Negative) 03/07/22 03:29 Ur Amphetamines Screen Negative ng/mL (Negative) 03/07/22 03:29 U Benzodiazepines Scrn Negative ng/mL (Negative) 03/07/22 03:29 Urine Cocaine Screen Negative ng/mL (Negative) 03/07/22 03:29 U Marijuana (THC) Screen Positive ng/mL (Negative) H 03/07/22 03:29 Ethyl Alcohol < 10 mg/dL (0-10) 03/07/22 02:59 Discharge Plan Discharge Patient Disposition: Home Clinical Impression: Depression Condition: Stable Prescriptions: No Action ondansetron 4 mg tablet,disintegrating 4 mg PO Q8H PRN (Reason: nausea and vomiting) Qty: 30 0RF escitalopram oxalate [Lexapro] 20 mg tablet 30 mg PO DAILY Qty: 45 0RF Hold Instructions: Patient No Longer Taking Rx Instructions: Take one and one-half tablets by mouth every moring pregabalin 25 mg capsule 25 mg PO .qhs PRN (Reason: chonic pain) Qty: 30 0RF meloxicam 7.5 mg tablet 7.5 mg PO DAILY Qty: 30 1RF Rx Instructions: take with a meal/food. Discharge Orders: Discharge ED (Routine); Ordered 03/07/22 Ordered By: Mary Graves Referrals: Marcelino Da Silva MD [Primary Care Provider] - 1-3 days Discharge Diet: Advance as tolerated Discharge Activity: Resume usual activity Patient Instructions: Depression (ED) Coding Level of Care Code ED [employer] Pump Tender for Chg Fwd Exam Comprehensive Documented by User: Mary Graves MD 03/07/22 07:44 HPI - Psych General: Chief Complaint: Psychiatric Symptoms Stated Complaint: Depression eval Time Seen by Provider: 03/07/22 02:29 [facility] PFSH: Medical History Acute kidney injury Creatinine went from 0.4 to a creatinine of 1.2 on 11/08/2021. At risk for exposure to radiation Chronic nausea Gallstones without obstruction of gallbladder History of muscular dystrophy Lumbar back pain with radiculopathy affecting right lower extremity Major depressive disorder, recurrent, moderate The following information was retrieved and edited from Behavior Assessment Report, completed on 10/30/21: Methamphetamine abuse Osteoarthritis of spine at multiple levels Osteomyelitis of right hip Psychiatric care Psychiatric care Scoliosis deformity of spine Surgery with [place] rods implants in 1996 Social History Smoking and tobacco status: current every day smoker cigarettes Packs smoked per day: 0.25 Years cigarettes smoked: 20 Quit status (tobacco): considering quitting Second hand smoke exposure: Yes Alcohol intake: never Course Vital Signs: Vital signs: Vital Signs Temperature 98.1 F 03/07/22 02:33 Pulse Rate 65 03/07/22 06:35 Respiratory Rate 16 03/07/22 06:35 Blood Pressure 152/86 03/07/22 06:35 Pulse Oximetry 100 03/07/22 06:35 Oxygen Delivery Me thod 03/07/22 06:35 MDM - Psych Medical Decision Making 41-year-old lady with history of psychiatric disorder presenting for worsening depression. Based on ED evaluation at this point there is no obvious condition that would preclude the patient from inpatient management of psychiatric concerns. Patient is voluntary at this time. Discussed with psychiatry service and patient accepted to neuropsych unit. Patient presents here with depression she is not suicidal homicidal she states she feels much improved since being here she does not want to be admitted she was voluntary she has no reason to have 96-hour hold she was never suicidal she is stable for discharge. She does see [facility] [place] she is to follow-up with them and return if worsening. Lab Data : 03/07/22 02:59 03/07/22 02:59 Laboratory Results WBC 12.3 10^3/uL (4.0-10.0) H 03/07/22 02:59 RBC 5.07 10^6/uL (4.1-5.3) 03/07/22 02:59 Hgb 12.8 g/dL (11.5-15.3) 03/07/22 02:59 Hct 42.0 % (37.0-47.0) 03/07/22 02:59 MCV 82.8 fl (81-99) 03/07/22 02:59 MCH 25.2 pg (28.0-34.0) L 03/07/22 02:59 MCHC 30.5 g/dL (30.0-36.0) 03/07/22 02:59 RDW 18.7 % (12.1-15.1) H 03/07/22 02:59 Plt Count 419 10^3/cmm (130-400) H 03/07/22 02:59 MPV 9.5 fL (7.4-10.4) 03/07/22 02:59 Neut % (Auto) 55.1 % 03/07/22 02:59 Lymph % (Auto) 37.1 % 03/07/22 02:59 [place] % (Auto) 7.0 % 03/07/22 02:59 Eos % (Auto) 0.4 % 03/07/22 02:59 Baso % (Auto) 0.2 % 03/07/22 02:59 Neut # (Auto) 6.78 10^3/uL (1.8-7.7) 03/07/22 02:59 Lymph # (Auto) 4.6 10^3/uL (0.8-4.8) 03/07/22 02:59 [place] # (Auto) 0.9 10^3/uL (0.2-0.9) 03/07/22 02:59 Eos # (Auto) 0.1 10^3/uL (0.0-0.8) 03/07/22 02:59 Baso # (Auto) 0.0 10^3/uL (0.0-0.1) 03/07/22 02:59 Nucleated RBC % (auto) 0 % 03/07/22 02:59 Nucleated RBCs # 0.0 /100WBC 03/07/22 02:59 Sodium 138 mmol/L (136-145) 03/07/22 02:59 Potassium 3.8 mmol/L (3.5-5.1) 03/07/22 02:59 Chloride 102 mmol/L (98-107) 03/07/22 02:59 Carbon Dioxide 23 mmol/L (22-29) 03/07/22 02:59 Anion Gap 16.8 (5-19) 03/07/22 02:59 BUN 13 mg/dL (6-20) 03/07/22 02:59 Creatinine 0.9 mg/dL (0.5-0.9) 03/07/22 02:59 GFR Calculation 68.7 mL/min (90-130) L 03/07/22 02:59 Glucose 95 mg/dL (65-115) 03/07/22 02:59 Calculated Osmolality 286 mOsm/kg (285-295) 03/07/22 02:59 Calcium 9.7 mg/dL (8.5-10.5) 03/07/22 02:59 Total Bilirubin 0.2 mg/dL (0.15-1.2) 03/07/22 02:59 AST 41 U/L (0-32) H 03/07/22 02:59 ALT 32 U/L (0-33) 03/07/22 02:59 Alkaline Phosphatase 89 IU/L (35-105) 03/07/22 02:59 Total Protein 8.3 g/dL (6.6-8.7) 03/07/22 02:59 Albumin 3.9 g/dL (3.5-5.2) 03/07/22 02:59 Globulin 4.4 g/dL (1.3-4.6) 03/07/22 02:59 TSH 3.55 uIU/mL (0.27-4.20) 03/07/22 02:59 HCG, Qual Negative (Negative) 03/07/22 03:29 Salicylates < 0.3 mg/dL (3-10) L 03/07/22 02:59 Urine Opiates Screen Negative ng/mL (Negative) 03/07/22 03:29 Acetaminophen < 5.0 ug/mL (10-30) L 03/07/22 02:59 Ur Barbiturates Screen Negative ng/mL (Negative) 03/07/22 03:29 Ur Phencyclidine Scrn Negative ng/mL (Negative) 03/07/22 03:29 Ur Amphetamines Screen Negative ng/mL (Negative) 03/07/22 03:29 U Benzodiazepines Scrn Negative ng/mL (Negative) 03/07/22 03:29 Urine Cocaine Screen Negative ng/mL (Negative) 03/07/22 03:29 U Marijuana (THC) Screen Positive ng/mL (Negative) H 03/07/22 03:29 Ethyl Alcohol < 10 mg/dL (0-10) 03/07/22 02:59 Discharge Plan Discharge Patient Disposition: Home Clinical Impression: Depression Condition: Stable Prescriptions: No Action ondansetron 4 mg tablet,disintegrating 4 mg PO Q8H PRN (Reason: nausea and vomiting) Qty: 30 0RF escitalopram oxalate [Lexapro] 20 mg tablet 30 mg PO DAILY Qty: 45 0RF Hold Instructions: Patient No Longer Taking Rx Instructions: Take one and one-half tablets by mouth every moring pregabalin 25 mg capsule 25 mg PO .qhs PRN (Reason: chonic pain) Qty: 30 0RF meloxicam 7.5 mg tablet 7.5 mg PO DAILY Qty: 30 1RF Rx Instructions: take with a meal/food. Discharge Orders: Discharge ED (Routine); Ordered 03/07/22 Ordered By: Mary Graves Referrals: Marcelino Da Silva MD [Primary Care Provider] - 1-3 days Discharge Diet: Advance as tolerated Discharge Activity: Resume usual activity Patient Instructions: Depression (ED) Coding Level of Care Code ED [employer] Pump Tender for [place] Fwd Exam Comprehensive
[2022-03-07 02:33] VITALS: BP 155/97; PULSE 82; RESP 16; TEMP 36.7; O2SAT 100
[2022-03-07 03:09] LABS: Basophils % 0.2 %; Eosinophils # 0.1 10^3/uL (0.0-0.8); Eosinophils % 0.4 %; Hemoglobin 12.8 g/dL (11.5-15.3); Lymphocytes # 4.6 10^3/uL (0.8-4.8); Lymphocytes % 37.1 %; Mean Corpuscular HGB Conc 30.5 g/dL (30.0-36.0); Mean Corpuscular Hemoglobin 25.2 pg (28.0-34.0); Mean Corpuscular Volume 82.8 fl (81-99); Mean Platelet Volume 9.5 fL (7.4-10.4); Monocytes # 0.9 10^3/uL (0.2-0.9); Neutrophils # 6.78 10^3/uL (1.8-7.7); Neutrophils % 55.1 %; Nucleated Red Blood Cells % 0 %; Platelet Count 419 10^3/cmm (130-400); Red Blood Count 5.07 10^6/uL (4.1-5.3); Red Cell Distribution Width 18.7 % (12.1-15.1); White Blood Count 12.3 10^3/uL (4.0-10.0)
[2022-03-07 03:36] LABS: Alanine Aminotransferase 32 U/L (0-33); Albumin Level 3.9 g/dL (3.5-5.2); Alkaline Phosphatase 89 IU/L (35-105); Anion Gap 16.8 (5-19); Aspartate Amino Transferase 41 U/L (0-32); Blood Urea Nitrogen 13 mg/dL (6-20); Calcium 9.7 mg/dL (8.5-10.5); Carbon Dioxide 23 mmol/L (22-29); Chloride 102 mmol/L (98-107); Globulin 4.4 g/dL (1.3-4.6); Glomerular Filtration Rate 68.7 mL/min (90-130); Glucose 95 mg/dL (65-115); Osmolality Calculated 286 mOsm/kg (285-295); Potassium 3.8 mmol/L (3.5-5.1); Sodium 138 mmol/L (136-145); Total Bilirubin 0.2 mg/dL (0.15-1.2); Total Protein 8.3 g/dL (6.6-8.7)
[2022-03-07 03:36] LABS: HCG Qualitative Urine. Negative (Negative)
--- NOTE | 2022-03-07 03:36 | PC.NURSE ---
pt not dressed in scrubs per Dr. Ca. Pt is not SI/HI. Just eval for depression and psych symptoms.
[2022-03-07 03:37] LABS: Acetaminophen < 5.0 ug/mL (10-30); Alcohol Level < 10 mg/dL (0-10); Salicylate < 0.3 mg/dL (3-10)
[2022-03-07 03:41] LABS: Thyroid Stimulating Hormone 3.55 uIU/mL (0.27-4.20)
[2022-03-07 03:45] LABS: Amphetamines Screen Urine Negative (Negative); Barbiturates Screen Urine Negative (Negative); Benzodiazepines Screen Urine Negative (Negative); Cocaine Screen Urine Negative (Negative); Opiate Screen Urine Negative (Negative); PCP Screen Urine Negative (Negative); THC Screen Urine Positive (Negative)
--- NOTE | 2022-03-07 06:19 | PC.NURSE ---
Pt updated on plan of care. Pt originally stated she wanted to leave, but after discussing that she would be admitted, she decided to stay. Pt asked to use restroom, then stood in the corner, peed in the floor and proceeded to kick the pee around the room. Pt was given scrubs and changed into them without difficulty. Pt gets upset at random times, and then calms down again.
[2022-03-07 06:35] VITALS: BP 152/86; PULSE 65; RESP 16; O2SAT 100
--- NOTE | 2022-03-07 07:05 | PC.NURSE ---
Report received from production supervisor off shift RN
== END 2022-03-07 07:49 | disposition home or self-care (01) ==
PROVIDERS: Emergency Medicine; Emergency Provider Emergency Medicine; PCP Family Medicine Adult Medicine
DX: F32.A Depression, unspecified (principal); F17.210 Nicotine dependence, cigarettes, uncomplicated
CPT/HCPCS: 80053; 80306; 80307; 81025; 84443; 85025; 99283

== ENCOUNTER 2022-03-20 17:26 | Inpatient (IN) | payer MEDICAID, SELFPAY ==
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
[2022-03-20 17:39] VITALS: BP 100/79; PULSE 85; RESP 16; O2SAT 96
[2022-03-20 18:19] VITALS: O2SAT 97
--- NOTE | 2022-03-20 18:24 | PC.NURSE ---
Patient given sandwich and something to drink. States its been since yesterday since she has eaten. Has appropriate behavior and was thankful. Denies any nausea at this time.
[2022-03-20 18:27] LABS: Hematocrit 41.3 % (37.0-47.0); Mean Corpuscular HGB Conc 31.5 g/dL (30.0-36.0); Mean Corpuscular Hemoglobin 25.3 pg (28.0-34.0); Mean Corpuscular Volume 80.4 fl (81-99); Mean Platelet Volume 10.5 fL (7.4-10.4); Platelet Count 474 10^3/cmm (130-400); Red Blood Count 5.14 10^6/uL (4.1-5.3); Red Cell Distribution Width 18.7 % (12.1-15.1)
[2022-03-20 18:51] LABS: Alanine Aminotransferase 27 U/L (0-33); Alcohol Level 197 mg/dL (0-10); Alkaline Phosphatase 95 U/L (35-105); Anion Gap 22.1 (5-19); Aspartate Amino Transferase 37 U/L (0-32); Blood Urea Nitrogen 13 mg/dL (6-20); Calcium 9.6 mg/dL (8.5-10.5); Carbon Dioxide 19 mmol/L (22-29); Chloride 97 mmol/L (98-107); Glomerular Filtration Rate 91.8 mL/min (90-130); Glucose 89 mg/dL (65-115); Osmolality Calculated 280 mOsm/kg (285-295); Potassium 3.1 mmol/L (3.5-5.1); Sodium 135 mmol/L (136-145); Total Bilirubin 0.2 mg/dL (0.15-1.2)
[2022-03-20 18:55] LABS: Acetaminophen < 5.0 ug/mL (10-30); Salicylate < 0.3 mg/dL (3-10)
--- NOTE | 2022-03-20 19:19 | PC.NURSE ---
Patient has become verbally agressive with staff. Patient is having incoherent thoughts and snapping her fingers at staff. Will not follow simple commands being defiant. Patient placed outside of room 9 for 1:1 observations.
[2022-03-20 19:43] LABS: Segmented Neutrophils 36 %; Slide Review Slide Review Perform; Total Cells Counted 100 (0-100)
[2022-03-20 19:44] LABS: Absolute Eosinophils 0.1 10^3/cmm (0.0-0.7); Eosinophils 1 %; Lymphocytes 31 %; Lymphocytes Absolute 8.1 10^3/cmm (1.2-3.4); Monocytes Absolute 0.7 10^3/cmm (0.1-0.6); Platelet Estimate Increased (Normal)
[2022-03-20 21:25] LABS: Amphetamines Screen Urine Negative (Negative); Barbiturates Screen Urine Negative (Negative); Benzodiazepines Screen Urine Negative (Negative); Cocaine Screen Urine Negative (Negative); Opiate Screen Urine Negative (Negative); PCP Screen Urine Negative (Negative); THC Screen Urine Positive (Negative)
[2022-03-20 23:19] VITALS: PULSE 74; RESP 16; O2SAT 97
[2022-03-20 23:27] VITALS: BP 106/73; PULSE 91; RESP 16; TEMP 36.7; O2SAT 97
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
[2022-03-21 06:00] VITALS: BP 130/78; PULSE 77; RESP 16; TEMP 37; O2SAT 98
[2022-03-21] MEDS: thiamine 100 mg Tablet PO (07:56)
[2022-03-21] MEDS: multivitamin therapeutic Tablet 1 TAB PO (07:56)
[2022-03-21] MEDS: folic acid 1 mg Tablet PO (07:56)
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
[2022-03-21 14:00] VITALS: BP 118/84; PULSE 69; RESP 16; TEMP 36.7; O2SAT 97
[2022-03-21 20:55] VITALS: BP 115/77; PULSE 75; RESP 16; O2SAT 97
[2022-03-22 06:00] VITALS: RESP 17
--- NOTE | 2022-03-22 10:00 | PC.NURSE ---
Nursing Note Patient is lying in bed, resting. She took a bath this morning and said she feels better. Patient states she slept well last night, but that her entire right side and lower back hurts (she rated it at a 10 on a scale of 0-10). Med nurse is giving her tylenol. Denies any suicidal and homicidal ideations. Denies any auditory or visual hallucinations. She said she felt a little anxious this morning, but when asked if she needed any medication for it she said calmly, I'm trying not to take anything for it, so no. I told her if she still felt anxious or felt she was getting more anxious to let us know so we could help her. She stated her last bowel movement was this morning.
[2022-03-22] MEDS: thiamine 100 mg Tablet PO (10:03)
[2022-03-22] MEDS: acetaminophen 325 mg Tablet 650 MG PO (10:03)
[2022-03-22] MEDS: multivitamin therapeutic Tablet 1 TAB PO (10:03)
[2022-03-22] MEDS: OLANZapine 5 mg ODT PO (10:03)
[2022-03-22] MEDS: folic acid 1 mg Tablet PO (10:03)
--- NOTE | 2022-03-22 11:18 | PC.NURSE ---
PT REQUESTED TYLENOL FOR PAIN AND SOMETHING FOR ANXIETY. PT WAS GIVEN ZYDIS FOR ANXIETY
[2022-03-22 14:00] VITALS: BP 90/54; PULSE 60; RESP 16; TEMP 36.6; O2SAT 98
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
[2022-03-22 20:12] VITALS: BP 109/72; PULSE 80; RESP 16; TEMP 36.8; O2SAT 98
[2022-03-23 06:00] VITALS: BP 123/82; PULSE 70; RESP 16; TEMP 36.7; O2SAT 98
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
[2022-03-23] MEDS: hyDROXYzine 25 mg Capsule 50 MG PO ×2 (09:14→19:37)
[2022-03-23] MEDS: folic acid 1 mg Tablet PO (09:14)
[2022-03-23] MEDS: thiamine 100 mg Tablet PO (09:14)
[2022-03-23] MEDS: multivitamin therapeutic Tablet 1 TAB PO (09:14)
[2022-03-23 14:00] VITALS: BP 126/84; PULSE 87; RESP 18; TEMP 36.3; O2SAT 97
[2022-03-23 19:44] VITALS: BP 134/87; PULSE 93; RESP 17; TEMP 36.7; O2SAT 97
[2022-03-24] MEDS: acetaminophen 325 mg Tablet 650 MG PO ×3 (05:51→22:38)
[2022-03-24 06:00] VITALS: BP 131/84; PULSE 77; RESP 18; TEMP 37; O2SAT 98
--- NOTE | 2022-03-24 06:14 | PC.NURSE ---
After pt was done in the shower after urinating on the floor and throwing clothing in hallway, pt refused to picker and packer after herself and threw soap and wet toilet paper in the bathroom then began yelling at this nurse stating, i don't work here, do your job. pick that up. Pt irritable and verbally escalating. pt then walked away and situation immediately de escalated.
[2022-03-24] MEDS: thiamine 100 mg Tablet PO (08:39)
[2022-03-24] MEDS: folic acid 1 mg Tablet PO (08:39)
[2022-03-24] MEDS: multivitamin therapeutic Tablet 1 TAB PO (08:39)
--- NOTE | 2022-03-24 10:11 | PC.NURSE ---
IN BED RESTING DENIES SI/HI AND AVH AT THIS TIME. PT STATES SHE IS READY TO BE DISCHARGED. INFORMED PT SHE WOULD HAVE TO SPEAK TO . PT STATES PAIN IS A 8/10 BUT APPEARS TO BE RESTING COMFORTABLE. WAS MEDICATED WITH TYLENOL PREVIOUS SHIFT. INFORMED PT THAT SHE COULD HAVE TYLENOL IN 2 MORE HOURS. PT AGREEED THAT WOULD BE FINE. ALL QUESTIONS ANSWERED AND SUPPORT WAS VOICED.
[2022-03-24 14:00] VITALS: BP 121/85; PULSE 68; RESP 18; TEMP 36.6; O2SAT 98
--- NOTE | 2022-03-24 18:11 | P.NPUPN_ITS ---
Subjective NPU Subjective: Shavon admitted to the use of alcohol prior to entering into the hospital. She reports that she continued to feel depressed. She reported extended history of depression and stated that her previous medication Lexapro had not been helpful. She reported no side effects from her Lexapro but stated that it had not been working well for her. The patient was agreeable to considering medications today and agreeable to considering follow-up with outpatient providers when her mood improved. She did continue to complain of low energy and low motivation. Staff notes the patient had been isolative on the milieu. She had reported some difficulties with managing her anxiety in the past. She reports that she had been recently homeless and had been removed from the retirement for unspecified reasons after being there for several months. Mental Status Exam MSE Comments: This is a small, slender, white female in hospital scrubs with intermittent eye contact, and adequate grooming. No abnormal movements except for mild psychomotor retardation. Poor dentition. Cooperative with exam in no acute distress. Speech was normal rate and volume. Mood described as depressed , affect is congruent and restricted in range. Thought process, organized. Thought content: patient denies suicidal or homicidal ideation, no delusions reported or noted and denies any auditory or visual hallucinations. Attention and concentration are intact and memory appeared reliable but none were formally tested. She is alert and oriented three times. Insight and judgment are limited. Impulse control remained guarded. Vitals/I&O/Wt Last Vital Signs Temp 98 F 03/24/22 14:00 Pulse 68 03/24/22 14:00 Resp 18 03/24/22 14:00 BP 121/85 03/24/22 14:00 Pulse Ox 98 03/24/22 14:00 O2 Del Method 03/24/22 14:00 Weight last 48 hrs Weight 44.271 kg Data NPU : 03/20/22 17:25 03/20/22 17:25 A&P Assessment and plan (1) Major depressive disorder, recurrent, moderate: Status: Chronic (2) Alcohol abuse: Status: Acute (3) History of muscular dystrophy: Status: Acute (4) Borderline personality disorder: Status: Acute (5) Cannabis abuse: Status: Acute (6) History of methamphetamine abuse: Status: Acute Plan This is a 41 year old white female with a history of mental health and addiction issues with genetic loading for addiction issues who presents positive for cannabis and alcohol reporting she was taken in due to unknowingly cutting her finger which resulted in blood all over her that caused the police to bring her in on a hold reporting she does not have any current mental health issues or need for medications at this time. 1. Start Effexor 37.5mg in AM. 2. Encourage individual, group and milieu therapy 3. Continue q-15 minute check for safety 4. Recommend sober living treatment at the highest level of care to which the patient is willing to commit. 5. Continue to monitor for safety. Treatment team can work to reconnect with [facility] [place] services in the morning Involuntary Hold Information 96 Hour Hold: 96 Hour Involuntary Admission: Yes 96 Hour Hold Ending Date: 03/26/22 96 Hour Hold Ending Time: 22:30 Attestations U Medical Necessity Statement*: Inpatient hospitalization is medically necessary and the clinically appropriate intervention at this time. We will monitor medications and make changes as indicated. Likely length of stay is 2-5 days. Coding Level of Care Code Established Pt Acute Defence Intelligence Analyst for g Fwd Patient Type Established History Problem Focused Exam Problem Focused Medical Decision Making Straight Forward Diagnoses Major depressive disorder, recurrent, moderate F33.1 Alcohol abuse F10.10 History of muscular dystrophy Z86.69 Borderline personality disorder F60.3 Cannabis abuse F12.10 History of methamphetamine abuse F15.11
[2022-03-24 19:52] VITALS: BP 122/76; PULSE 69; RESP 16; TEMP 36.9; O2SAT 97
[2022-03-25 06:00] VITALS: BP 119/72; PULSE 57; RESP 17; TEMP 36.7; O2SAT 98
[2022-03-25] MEDS: venlafaxine ER (24HR) 37.5 mg Capsule PO (08:33)
[2022-03-25] MEDS: multivitamin therapeutic Tablet 1 TAB PO (08:33)
[2022-03-25] MEDS: folic acid 1 mg Tablet PO (08:33)
[2022-03-25] MEDS: acetaminophen 325 mg Tablet 650 MG PO ×3 (08:33→22:03)
[2022-03-25] MEDS: thiamine 100 mg Tablet PO (08:34)
[2022-03-25 14:00] VITALS: BP 124/76; PULSE 70; RESP 16; TEMP 36.8; O2SAT 97
--- NOTE | 2022-03-25 17:44 | P.NPUPN_ITS ---
Subjective NPU Subjective: Shavon admitted to the use of alcohol prior to entering into the hospital. She reports that she continued to feel frustrated over being here and reports that she continued to worry about her homelessness. Staff notes the patient had been isolative and had struggled with engaging on the milieu with peers. She reports that she has had no thoughts of hurting herself. She had minimized the significance of any substance abuse currently although she had acknowledged the use of alcohol upon admission. She reports that she is agreeable to receiving outpatient services. She reports no side effects from her Effexor at this time. She had reported significant pain issues. She reports having little some social supports in [place] and stated that she hoped to move to [place] and be placed in a skilled nursing there where she would receive further psychiatric services in the area. Mental Status Exam MSE Comments: This is a small, slender, white female in hospital scrubs with intermittent eye contact, and adequate grooming. No abnormal movements except for mild psychomotor retardation. Poor dentition. Cooperative with exam in no acute distress. Speech was normal rate and volume. Mood described as okay , affect is incongruent and restricted in range. Thought process, organized. Thought content: patient denies suicidal or homicidal ideation, no delusions reported or noted and denies any auditory or visual hallucinations. Attention and concentration are intact and memory appeared reliable but none were formally tested. She is alert and oriented three times. Insight and judgment are limited. Impulse control remained guarded. Vitals/I&O/Wt Last Vital Signs Temp 98.3 F 03/25/22 14:00 Pulse 70 03/25/22 14:00 Resp 16 03/25/22 14:00 BP 124/76 03/25/22 14:00 Pulse Ox 97 03/25/22 14:00 O2 Del Method 03/24/22 14:00 Data NPU : 03/20/22 17:25 03/20/22 17:25 A&P Assessment and plan (1) Major depressive disorder, recurrent, moderate: Status: Chronic (2) Alcohol abuse: Status: Acute (3) History of muscular dystrophy: Status: Acute (4) Borderline personality disorder: Status: Acute (5) Cannabis abuse: Status: Acute (6) History of methamphetamine abuse: Status: Acute Plan This is a 41 year old white female with a history of mental health and addiction issues with genetic loading for addiction issues who presents positive for cannabis and alcohol reporting she was taken in due to unknowingly cutting her finger which resulted in blood all over her that caused the police to bring her in on a hold reporting she does not have any current mental health issues or need for medications at this time. 1. Increase Effexor 75mg in AM. 2. Encourage individual, group and milieu therapy 3. Continue q-15 minute check for safety 4. Recommend sober living treatment at the highest level of care to which the patient is willing to commit. 5. Continue to monitor for safety. Involuntary Hold Information 96 Hour Hold: 96 Hour Involuntary Admission: Yes 96 Hour Hold Ending Date: 03/26/22 96 Hour Hold Ending Time: 22:30 Attestations NPU Medical Necessity Statement*: Inpatient hospitalization is medically necessary and the clinically appropriate intervention at this time. We will monitor medications and make changes as indicated. Likely length of stay is 3-6 days. 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
[2022-03-25] MEDS: OLANZapine 5 mg ODT PO (20:46)
[2022-03-25 21:56] VITALS: BP 143/90; PULSE 71; RESP 16; TEMP 36.7; O2SAT 94
[2022-03-26 06:00] VITALS: RESP 16
--- NOTE | 2022-03-26 06:37 | PC.NURSE ---
Patient refused vital signs this morning.
[2022-03-26] MEDS: folic acid 1 mg Tablet PO (09:16)
[2022-03-26] MEDS: multivitamin therapeutic Tablet 1 TAB PO (09:17)
[2022-03-26] MEDS: thiamine 100 mg Tablet PO (09:17)
[2022-03-26] MEDS: acetaminophen 325 mg Tablet 650 MG PO ×2 (09:19→19:54)
[2022-03-26 14:00] VITALS: BP 124/79; PULSE 73; RESP 18; TEMP 36.8; O2SAT 96
--- NOTE | 2022-03-26 15:48 | P.NPUPN_ITS ---
Subjective NPU Subjective: Shavon admitted to the use of alcohol prior to entering into the hospital along with reports of bizarre behavior including walking on the road with blood on her face. Patient when questioned regarding her plans for the future stated that she wished to go to [place] and follow-up with [facility]. She had reported to us staff that she had plans to go on [place] and worked there. On Occupational Therapy evaluation she had indicated that she did work on [place] and appeared to struggle with routine activities of daily living often suggesting to the sand shoveler that she did not shower often nor did she appear to have knowledge on how to help herself if she were to be sick. She continues to show a lack of self-care and states that she brushes her teeth very infrequently. Patient became agitated and verbally threatening when she was informed that she would need to communicate her desire to return home to the appellate court judge tomorrow stating that she has a counselor camp and wishes to discuss this with them. The patient had minimized her use of substances here and minimized the significance of her frequent hospitalizations recently stating that these problems were not of concern to the treatment team. There had been documentation on the unit of the patient urinating in inappropriate places and showing poor judgment while making veiled threats to some other peers. Patient refused her effexor stating it was not necessary. Mental Status Exam MSE Comments: This is a small, slender, white female in hospital scrubs with intermittent eye contact, and poor grooming. No abnormal movements except for mild psychomotor retardation. Poor dentition. Agitated with exam and was verbally threatening . Speech was normal rate and loud volume. Mood described as fine , affect is incongruent and labile. Thought process: linear but paranoid at times Thought content: patient denies suicidal or homicidal ideation, no delusions reported or noted and denies any auditory or visual hallucinations. S he appeared distrustful. Attention and concentration are intact and memory appeared reliable but none were formally tested. She is alert and oriented three times. Insight and judgment are limited. Impulse control remained guarded. Vitals/I&O/Wt Last Vital Signs Temp 98.2 F 03/26/22 14:00 Pulse 73 03/26/22 14:00 Resp 18 03/26/22 14:00 BP 124/79 03/26/22 14:00 Pulse Ox 96 03/26/22 14:00 O2 Del Method 03/26/22 14:00 Data NPU : 03/20/22 17:25 03/20/22 17:25 A&P Assessment and plan (1) Psychosis: Status: Acute (2) Alcohol abuse: Status: Acute (3) History of muscular dystrophy: Status: Acute (4) Borderline personality disorder: Status: Acute (5) Cannabis abuse: Status: Acute (6) History of methamphetamine abuse: Status: Acute Plan This is a 41 year old white female with a history of mental health and addiction issues with genetic loading for addiction issues who presents positive for cannabis and alcohol reporting she was taken in due to unknowingly cutting her finger which resulted in blood all over her that caused the police to bring her in on a hold reporting she does not have any current mental health issues or need for medications at this time. 1. Discontinue Effexor, patient refusing, filed for 21 day stay with likely need for forcible medication. Patient remains labile and illogical, with limited supports and cognitively impaired as well. 2. Encourage individual, group and milieu therapy 3. Continue q-15 minute check for safety 4. Recommend sober living treatment at the highest level of care to which the patient is willing to commit. 5. Continue to monitor for safety. Involuntary Hold Information 96 Hour Hold: 96 Hour Involuntary Admission: Yes 96 Hour Hold Ending Date: 03/26/22 96 Hour Hold Ending Time: 22:30 Attestations NPU Medical Necessity Statement*: Inpatient hospitalization is medically necessary and the clinically appropriate intervention at this time. We will monitor medications and make changes as indicated. Likely length of stay is 3-6 days. Coding Level of Care Code Established Pt Acute Tile Installer for Everardo Fwтатьяна Patient Type Established History Problem Focused Exam Problem Focused Medical Decision Making Straight Forward Diagnoses Psychosis F29 Alcohol abuse F10.10 History of muscular dystrophy Z86.69 Borderline personality disorder F60.3 Cannabis abuse F12.10 History of methamphetamine abuse F15.11
--- NOTE | 2022-03-26 17:08 | PC.NURSE ---
PT WITH DR STOLL, PT BECAME UPSET, STARTED YELLING NONSENSICAL SPEECH TOWARDS DR AND STAFF, PT USING VULGAR PROFANITY TOWARDS STAFF, SECURITY CALLED TO UNIT FOR PT ESCALATION, JUAN WITH SECURITY ARRIVED TO UNIT, ATTEMPTS BY THIS NURSE TO VERBALLY DE-ESCALATE PT, PT STOMPED OFF TO DAYROOM, PT THEN RETURNED TO NURSES STATION, CALM AND QUIET, PT OFFERED SNACKS AND WAS CALM WITH ACCEPTANCE, NO FURTHER ISSUES OR INTERVENTIONS NEEDED
[2022-03-26] MEDS: OLANZapine 5 mg ODT PO (19:59)
[2022-03-26 21:12] VITALS: PULSE 106; RESP 17; TEMP 36.4; O2SAT 95
[2022-03-27 06:00] VITALS: BP 133/89; PULSE 97; RESP 18; TEMP 36.4; O2SAT 96
[2022-03-27] MEDS: ibuprofen 600 mg Tablet PO ×2 (06:17→19:33)
--- NOTE | 2022-03-27 06:33 | PC.NURSE ---
Patient complained of pain to left side of neck and shoulders medicated with Ibuprofen 600 mg.
[2022-03-27] MEDS: OLANZapine 5 mg ODT PO ×2 (07:10→19:33)
--- NOTE | 2022-03-27 10:57 | PC.NURSE ---
Nurse Note Patient sleeping in bed upon arrival. Patient stated she slept well, despite going back to bed after breakfast. States she has lower back pain at a 6 on a scale from 1-10, but did not want to take medication for it. Patient denied any suicidal or homicidal ideations. Denied any visual or auditory hallucinations. Patient stated she is not anxious at all.
[2022-03-27] MEDS: multivitamin therapeutic Tablet 1 TAB PO (12:13)
[2022-03-27] MEDS: folic acid 1 mg Tablet PO (12:13)
[2022-03-27] MEDS: thiamine 100 mg Tablet PO (12:14)
[2022-03-27] MEDS: venlafaxine ER (24HR) 75 mg Capsule PO (12:14)
[2022-03-27 14:00] VITALS: BP 109/70; PULSE 76; RESP 16; TEMP 36.7; O2SAT 98
--- NOTE | 2022-03-27 18:17 | W.PM.NPUPNS ---
Subjective NPU Subjective: Shavon admitted to the use of alcohol prior to entering into the hospital along with reports of bizarre behavior including walking on the road with blood on her face. The patient appeared redirectable on the milieu but when challenged regarding some of her beliefs or some of the situations leading to her hospitalization she appeared hostile and irritable. Patient had become upset at staff for not providing or meeting her needs and urinated on herself. She continued to show minimal insight in regards to her problems. She had vehemently denied any suicidal thoughts and states that she wishes to go to [place] and received outpatient services. The patient when engaged in this conversation with the bond underwriter of this note reported that she tried therapy before and reported that it had not been helpful. She had reported a history of noncompliance to medications. Mental Status Exam MSE Comments: This is a small, slender, white female in hospital scrubs with intermittent eye contact, and poor grooming. No abnormal movements except for mild psychomotor retardation. Poor dentition. She appeared in no acute distress and was lying in bed. She did appear angry and hostile at times during interview. Her thought process was linear logical and goal-directed. She did not endorse any thoughts of hurting herself or others. There is no clear evidence of delusional thinking. She did appear to show general distrust of others. She did engage in significant projection and was defensive belligerent at times. Her insight appeared poor her judgment at this time was limited and her impulse control was limited. Vitals/I&O/Wt Last Vital Signs Temp 98.0 F 03/27/22 14:00 Pulse 76 03/27/22 14:00 Resp 16 03/27/22 14:00 BP 109/70 03/27/22 14:00 Pulse Ox 98 03/27/22 14:00 O2 Del Method 03/27/22 14:00 Data NPU : 03/20/22 17:25 03/20/22 17:25 A&P Assessment and plan (1) Impulse control disorder: Status: Acute (2) Alcohol abuse: Status: Acute (3) History of muscular dystrophy: Status: Acute (4) Borderline personality disorder: Status: Acute (5) Cannabis abuse: Status: Acute (6) History of methamphetamine abuse: Status: Acute (7) Psychosis: Status: Acute Plan This is a 41 year old white female with a history of mental health and addiction issues with genetic loading for addiction issues who presents positive for cannabis and alcohol and methamphetamine dependence currently reporting desire to be placed at a penitentiary in [place] with follow up on outpatient basis. 1. Patient unlikely to benefit from inpatient stay with forceable medication as patient does not appear psychotic but rather having significant personality pathology with poor impulse control. She would be better treated on outpatient basis with DBT along with substance abuse treatment. 2. Encourage individual, group and milieu therapy 3. Continue q-15 minute check for safety 4. Recommend sober living treatment at the highest level of care to which the patient is willing to commit. 5. Continue to monitor for safety. Involuntary Hold Information 96 Hour Hold: 96 Hour Involuntary Admission: Yes 96 Hour Hold Ending Date: 03/26/22 96 Hour Hold Ending Time: 22:30 Attestations NPU Medical Necessity Statement*: Inpatient hospitalization is medically necessary and the clinically appropriate intervention at this time with referrals to be made with discharge tommorow extremely likely. Coding Level of Care Code Established Pt Acute Assessment Services Manager for Everardo Fwтатьяна Patient Type Established History Problem Focused Exam Problem Focused Medical Decision Making Straight Forward Diagnoses Impulse control disorder F63.9 Alcohol abuse F10.10 History of muscular dystrophy Z86.69 Borderline personality disorder F60.3 Cannabis abuse F12.10 History of methamphetamine abuse F15.11 Psychosis F29
[2022-03-27 21:59] VITALS: RESP 16
[2022-03-28 06:00] VITALS: BP 106/72; PULSE 77; RESP 16; TEMP 37; O2SAT 98
[2022-03-28] MEDS: magnesium hydroxide 30 mL UDC PO (07:22)
[2022-03-28] MEDS: thiamine 100 mg Tablet PO (09:01)
[2022-03-28] MEDS: multivitamin therapeutic Tablet 1 TAB PO (09:01)
[2022-03-28] MEDS: folic acid 1 mg Tablet PO (09:01)
[2022-03-28] MEDS: acetaminophen 325 mg Tablet 650 MG PO (09:01)
[2022-03-28] MEDS: ondansetron 4 MG Tablet PO (09:13)
--- NOTE | 2022-03-28 10:07 | PC.NURSE ---
PRN MEDICATION/EMESIS PT RECEIVED MOM 30 MLS PRIOR TO SHIFT DUE TO CONSTIPATION. PT CAME TO DESK AND REPORTED SHE THREW UP WHEN RN WENT TO ROOM IT WAS OBSERVED PT HAD ABOUT 300 ML OF CHUNKY BROWN EMESIS. PT WAS GIVEN ZOFRAN 4 MG PO FOR NAUSEA AND VOMITING and itWAS EFFECTIVE. PT ROOM WAS CLEANED AND NEW LINENS PROVIDED.
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
[2022-03-28 14:00] VITALS: BP 151/90; PULSE 58; RESP 17; TEMP 36.7; O2SAT 97
[2022-03-28 14:29] VITALS: BP 106/72; PULSE 77; RESP 16; TEMP 37; O2SAT 98
== END 2022-03-28 17:10 | disposition home or self-care (01) | DRG 885 ==
LOC: ER 19:19 → NP 23:11
PROVIDERS: Family Medicine; Admitting Provider Psychiatry & Neurology Psychiatry; Emergency Provider Emergency Medicine; PCP Family Medicine Adult Medicine; Visit Provider Psychiatry & Neurology Psychiatry
DX: F23 Brief psychotic disorder (principal); F33.1 Major depressive disorder, recurrent, moderate; F63.9 Impulse disorder, unspecified; F10.129 Alcohol abuse with intoxication, unspecified; Y90.6 Blood alcohol level of 120-199 mg/100 ml; F12.10 Cannabis abuse, uncomplicated; F17.210 Nicotine dependence, cigarettes, uncomplicated; S61.216A Laceration without foreign body of right little finger without damage to nail, initial encounter; W45.8XXA Other foreign body or object entering through skin, initial encounter; F15.11 Other stimulant abuse, in remission; Z86.69 Personal history of other diseases of the nervous system and sense organs; Z91.51 Personal history of suicidal behavior; Z59.00 Homelessness unspecified
CPT/HCPCS: 80053; 80306; 80307; 85007; 85025; 97150; 97165; 99285; Q0162